=== PATIENT | female | born 1955 | race Caucasian/White ===

== ENCOUNTER 2022-03-08 23:36 | Emergency (ER) | payer BC, OTHER ==
--- OUTSIDE RECORDS SUMMARY | 2022-03-08 23:40 | XMS REPORT | Continuity of Care Document ---
:1955 Author Organization [facility] t Address [address] [place] [address] Care Team Providers Name Role Phone YAO WATKINS Primary Care Physician Unavailable REMINGTON Attending Clinician Unavailable Jb WATERMAN Attending Clinician Unavailable APOLINAR CAMPOS Attending Clinician Unavailable Apolinar Nunez Attending Clinician Doctor Unassigned, Name Attending Clinician Unavailable Екатерина VAUGHAN, A Attending Clinician Unavailable Yao Watkins MD Attending Clinician Sirisha VELASCO Attending Clinician Unavailable Darren_Kit Attending Clinician Unavailable Darren_P Admitting Clinician Unavailable Payers Payer Name Policy Type Policy Number Effective Date Expiration Date Sirisha womack MANISH/[facility] [id number] 2022 MEDICARE GOLD PPO 00:00:00 CSNP Problems Condition Condition Condition Status Onset Resolution Last Treating Co mments Source Name Details Category Date Date Treatment Clinician Date Obesity Obesity Disease Active 2015-09 Univers (BMI (BMI 1-14 ity of 30-39.9) 30-39.9) 00:00: [address] Branch Hypothyroi Hypothyroi Disease Active U nivers d d 2-04 ity of 00:00: [place] 00 Medical Branch Depression Depression Disease Active U nivers 2-04 ity of 00:00: [place] 00 Medical Branch Essential Essential Disease Active Uni vers hypertensi hypertensi 8-13 [place] y of on, benign [place] Type 2 Type 2 Disease Active Overview: Univer s diabetes diabetes 8-13 Formattin ity of mellitus mellitus 00:00: g of this [place] as without without 00 note Medical complicati complicati might be Branch ons ons different from the original. 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 Allergies, Adverse Reactions, Alerts Allergy Allergy Status Severity Reaction(s) Onset Inactive Treating Comm ents Source Name Type Date Date Clinician Robertodrmallika Propensi Active Unknown - 2014-09 Uni vers ate ty to See comments 09-28 ity of Sodium adverse 00:00: [place] reaction 00 Medical s Branch Tetracyc Propensi Active Unknown - 2014-09 Uni vers line ty to See comments 09-28 ity of adverse 00:00: [place] reaction 00 Medical s Branch RISEDRON DRUG Active Unknown-Cmnt 2014-09 Un samir ATE INGREDI 09-28 ity of SODIUM 00:00: [place] 00 Medical Branch TETRACYC DRUG Active Unknown-Cmnt 2014-09 Un samir LINE INGREDI 09-28 ity of 00:00: [place] 00 Medical Branch Codeine Propensi Active Swelling Unive rs ty to 06-05 ity of adverse 00:00: [place] reaction 00 Medical s Branch Sulfa Propensi Active Swelling Univer s (Sulfona ty to 06-05 ity of mide adverse 00:00: [place] Antibiot reaction 00 Medica l ics) s Branch CODEINE DRUG Active SOB Univers INGREDI 06-05 ity of 00:00: [place] 00 Medical Branch SULFA Drug Active ITCHING Univers (SULFONA Class 06-05 ity of MIDE 00:00: [place] ANTIBIOT 00 Medical ICS) Branch Sulfa Propensi Active Swelling Univer s (Sulfona ty to 06-05 ity of mide adverse 00:00: [place] Antibiot reaction 00 Medica l ics) s Branch Social History Social Habit Start Date Stop Date Quantity Comments Source Exposure to 2022-01-16 2022-01-26 Not sure [facility] SARS-CoV-2 (event) 00:00:00 17:07:00 Medica l Branch Alcohol intake 2021-10-10 2021-10-10 0 /d [facility] 00:00:00 00:00:00 [facility] Branch Sex Ass[birth year] At [birth year] Universit y of [place] 00:00:00 00:00:00 Medical Branch Smoking Status Start Date Stop Date Source Never smoker [facility] Branch Medications Ordered Filled Start Stop Current Ordering Indication Dosage Frequency Signature Comments Components Source Medication Medication Date Date Medication? Clinician (SIG) Name Name benzonatate No 100mg 100 mg, U nivers (TESSALON 01-27 Oral, ity of PERLES) 00:45: 23:50 ONCE, 1 [place] capsule 100 00 :00 dose, On Medi nia mg 01/26/22 Branch at 1945, CLARIBEL ipratropium No 3mL 3 mL, Univ ers -albuteroL 01-27 Inhalation it y of (DUONEB) 00:45: 23:40 , ONCE, 1 [place] 0.5 mg-3 00 :00 dose, On Medical mg(2.5 mg Wed01/26/22 Bran ch base)/3 mL at 194, nebulizer Routine solution 3 mL albuterol Yes [id number] 2.5mg Inhale 3 Univers 2.5 mg /3 5-02 mL every 4 ity of mL (0.083 00:00: (four) [place] %) 00 hours as Medical nebulizer needed for Bran ch solution Wheezing or Shortness of Breath. benzonatate Yes [id number] 200mg Take 1 Univers 200 mg 5-02 capsule by ity of capsule 00:00: mouth 3 [place] 00 (three) Medical times Branch daily as needed for Cough for up to 20 doses. mometasone Yes [id number] 2{spray Use 2 Univers (NASONEX) 5-02 } Sprays in ity o f 50 00:00: each [place] mcg/actuati 00 nostril Medic al on nasal daily. Branch spray pen needle, Yes To be used Univers diabetic 32 2-04 with the ity of gauge x 00:00: Victoza [place] 1/5" Ndle 00 Pen Medical Branch pen needle, 2021-0 Yes To be used Univers diabetic 32 2-04 with the ity of gauge x 00:00: Victoza [place] 1/5" Ndle 00 Pen Medical Branch pen needle, 2021-0 Yes To be used Univers diabetic 32 2-04 with the ity of gauge x 00:00: Victoza [place] 1/5" Ndle 00 Pen Medical Branch lisinopriL 2020-09 Yes [id number] 10mg Take 1 Un samir 10 mg 2-13 tablet by ity of tablet 00:00: mouth [place] 00 daily. Medical Branch liraglutide 2020-09 Yes [id number] 1.2mg inject 1.2 Univers (VICTOZA 2-13 mg under ity of 2-KRISTI) 0.6 00:00: the skin [place] mg/0.1 mL 00 daily. Medical (18 mg/3 Branch mL) injection lisinopriL 2020-09 Yes [id number] 10mg Take 1 Un samir 10 mg 2-13 tablet by ity of tablet 00:00: mouth [place] 00 daily. Medical Branch liraglutide 2020-09 Yes [id number] 1.2mg inject 1.2 Univers (VICTOZA 2-13 mg under ity of 2-KRISTI) 0.6 00:00: the skin [place] mg/0.1 mL 00 daily. Medical (18 mg/3 Branch mL) injection lisinopriL 2020-09 Yes [id number] 10mg Take 1 Un samir 10 mg 2-13 tablet by ity of tablet 00:00: mouth [place] 00 daily. Medical Branch liraglutide 2020-09 Yes [id number] 1.2mg inject 1.2 Univers (VICTOZA 2-13 mg under ity of 2-KRISTI) 0.6 00:00: the skin [place] mg/0.1 mL 00 daily. Medical (18 mg/3 Branch mL) injection lisinopriL 2020-09 Yes [id number] 10mg Take 1 Un samir 10 mg 2-13 tablet by ity of tablet 00:00: mouth [place] 00 daily. Medical Branch liraglutide 2020-09 Yes [id number] 1.2mg inject 1.2 Univers (VICTOZA 2-13 mg under ity of 2-KRSITI) 0.6 00:00: the skin [place] mg/0.1 mL 00 daily. Medical (18 mg/3 Branch mL) injection venlafaxine 2020-0 Yes 150mg Take 150 U nivers XR 150 mg 8-30 mg by ity of 24 hr 15:14: mouth [place] capsule 02 daily with Medica l breakfast. Branch alendronate 2020-0 Yes 70mg Take 70 mg Univers 70 mg 8-30 by mouth ity of tablet 15:14: weekly. Medical Branch gabapentin 2020-0 Yes 300mg Take 300 Un samir 300 mg 8-30 mg by ity of capsule 15:14: mouth [place] 02 daily. Medical Branch cetirizine 0 Yes 10mg Take 10 mg U nivers (ZYRTEC) 10 8-30 by mouth ity of mg tablet 15:14: daily. Medical Branch venlafaxine 0 Yes 150mg Take 150 U nivers XR 150 mg 8-30 mg by ity of 24 hr 15:14: mouth [place] capsule 02 daily with Medica l breakfast. Branch alendronate 0 Yes 70mg Take 70 mg Univers 70 mg 8-30 by mouth ity of tablet 15:14: weekly. [place] Medical Branch gabapentin 2020-0 Yes 300mg Take 300 Un samir 300 mg 8-30 mg by ity of capsule 15:14: mouth [place] 02 daily. Medical Branch cetirizine 0 Yes 10mg Take 10 mg U nivers (ZYRTEC) 10 8-30 by mouth ity of mg tablet 15:14: daily. Medical Branch venlafaxine 0 Yes 150mg Take 150 U nivers XR 150 mg 8-30 mg by ity of 24 hr 15:14: mouth [place] capsule 02 daily with Medica l breakfast. Branch alendronate 0 Yes 70mg Take 70 mg Univers 70 mg 8-30 by mouth ity of tablet 15:14: weekly. [place] [address] Medical Branch gabapentin 2020-0 Yes 300mg Take 300 Un samir 300 mg 8-30 mg by ity of capsule 15:14: mouth [place] 02 daily. Medical Branch cetirizine 2020-0 Yes 10mg Take 10 mg U nivers (ZYRTEC) 10 8-30 by mouth ity of mg tablet 15:14: daily. [place] [address] Medical [place] venlafaxine Yes 150mg Take 150 U nivers XR 150 mg 8-30 mg by ity of 24 hr 15:14: mouth [place] capsule 02 daily with Medica l breakfast. Branch alendronate Yes 70mg Take 70 mg Univers 70 mg 8-30 by mouth ity of tablet 15:14: weekly. [place] [address] Medical [place] gabapentin Yes 300mg Take 300 Un samir 300 mg 8-30 mg by ity of capsule 15:14: mouth [place] 02 daily. Medical Branch cetirizine Yes 10mg Take 10 mg U nivers (ZYRTEC) 10 8-30 by mouth ity of mg tablet 15:14: daily. [address] glipiZIDE 5 Yes 5mg Take 5 mg U nivers mg tablet 8-30 by mouth ity of 15:12: daily. [address] glipiZIDE 5 Yes 5mg Take 5 mg U nivers mg tablet 8-30 by mouth ity of 15:12: daily. [address] glipiZIDE 5 Yes 5mg Take 5 mg U nivers mg tablet 8-30 by mouth ity of 15:12: daily. [address] glipiZIDE 5 Yes 5mg Take 5 mg U nivers mg tablet 8-30 by mouth ity of 15:12: daily. [address] butalbital- Yes [id number] 1{tbl} Take 1 Univers acetaminoph 8-25 tablet by ity of en-caff 00:00: mouth [place] 50-325-40 00 every 6 Medical mg tablet (six) Branch hours as needed for Pain (scale 7-10). butalbital- Yes [id number] 1{tbl} Take 1 Univers acetaminoph 8-25 tablet by ity of en-caff 00:00: mouth [place] 50-325-40 00 every 6 Medical mg tablet (six) Branch hours as needed for Pain (scale 7-10). butalbital- Yes [id number] 1{tbl} Take 1 Univers acetaminoph 8-25 tablet by ity of en-caff 00:00: mouth [place] 50-325-40 00 every 6 Medical mg tablet (six) Branch hours as needed for Pain (scale 7-10). butalbital- Yes [id number] 1{tbl} Take 1 Univers acetaminoph 8-25 tablet by ity of en-caff 00:00: mouth [place] 50-325-40 00 every 6 Medical mg tablet (six) Branch hours as needed for Pain (scale 7-10). metformin Yes [id number] 500mg Take 1 Tab Univers ER 2-04 by mouth 2 ity of (GLUCOPHAGE 00:00: (two) [place] -XR) 500 mg 00 times Medical 24 hr daily. Branch tablet metformin Yes [id number] 500mg Take 1 Tab Univers ER 2-04 by mouth 2 ity of (GLUCOPHAGE 00:00: (two) [place] -XR) 500 mg 00 times Medical 24 hr daily. Branch tablet metformin Yes [id number] 500mg Take 1 Tab Univers ER 2-04 by mouth 2 ity of (GLUCOPHAGE 00:00: (two) [place] -XR) 500 mg 00 times Medical 24 hr daily. Branch tablet metformin Yes [id number] 500mg Take 1 Tab Univers ER 2-04 by mouth 2 ity of (GLUCOPHAGE 00:00: (two) [place] -XR) 500 mg 00 times Medical 24 hr daily. Branch tablet Vital Signs Vital Name Observation Time Observation Value Comments Source Systolic blood 2022-01-27 01:07:00 110 mm[Hg] [facility] Diastolic blood 2022-01-27 01:07:00 73 mm[Hg] [facility] [place] [facility] Heart rate 2022-01-27 01:07:00 84 /min [facility] Body temperature 2022-01-27 01:07:00 37.06 Terri [facility] Respiratory rate 2022-01-27 01:07:00 17 /min [facility] Oxygen saturation in 2022-01-27 01:07:00 100 /min [facility] Arterial blood by [facility] Pulse oximetry Branch Body height 2022-01-26 22:08:00 162.6 cm [facility] Body weight 2022-01-26 22:08:00 85.276 kg Universi ty [facility] BMI 2022-01-26 22:08:00 32.27 kg/m2 Universi ty [facility] Procedures Procedure Date / Time Performed Performing Clinician [facility] e CONSENT/REFUSAL FOR 2022-01-26 21:48:12 Doctor Unassigned, No Un [facility] DIAGNOSIS AND Name [facility] TREATMENT Encounters Start End Encounter Admission Attending Care Care Encounter Source Date/Time Date/Time Type Type Clinicians Facility Department ID 2022-04-14 2022-04-14 Outpatient R REMINGTON [facility] [id number] Univers 08:30:00 08:30:00 CHRISTIANE [id number] ity [facility] 2022-03-19 2022-03-19 Outpatient [facility] [id number] Univers 08:00:00 08:00:00 ANNALISE [id number] ity of [facility] 2022-03-06 2022-03-06 Outpatient [facility] [id number] Univers 11:15:00 11:15:00 ANNALISE [id number] ity of [facility] 2022-01-26 2022-01-26 Emergency X BETH, K [facility] ERT [id number] Univers 17:10:00 20:09:00 ity of [facility] 2022-01-26 2022-01-26 Emergency Sara Campos [facility] [id number] Univers 17:10:00 20:09:00 Apolinar TURNER [id number] i ty of [place] [id number] [facility] [id number] [facility] 084 Branch 2022-01-26 2022-01-26 Orders Doctor CARMONA [id number] Univers 00:00:00 00:00:00 Only Unassigned, SAMUEL [id number] ity of [place] [facility] [id number] [place] [address] [id number] [facility] 009 Branch 2022-01-07 2022-01-07 Telephone KRISTINE Willams [id number] Univers 00:00:00 00:00:00 Enma BAKER [id number] ity of [facility] [id number] [place] [id number] [place] [id number] [place] 2021-10-31 2021-10-31 [facility] [id number] Univers 00:00:00 00:00:00 [facility] [id number] it y of [facility] [id number] [place] as YOHAN?BLEA [id number] [address] MEDICAL OFFICE BUILDING 2021-10-10 2021-10-10 Outpatient Salvatore VELASCO [facility] [id number] Univers 08:00:00 08:28:04 DEANNA ne [facility] 2021-09-26 2021-09-26 Outpatient Salvatore WATERMAN [facility] [id number] Univers 11:00:00 11:19:13 ANNALISE [facility] 2021-08-06 2021-08-06 Outpatient Salvatore WATERMAN [facility] [id number] Univers [facility]:05[facility]59[facility] 2019-12-18 Outpatient Raju_P [facility] G [id number] [place] 09:46:00 09:46:00 0323 Medical Group Results This patient has no known results.
--- NOTE | 2022-03-09 00:29 | ER ---
Nurse's Notes [facility] Name: Amber Petersen Age: 66 yrs Sex: Female : 1955 Arrival Date: 03/08/2022 Time: 23:38 Bed Waiting Private MD: Diagnosis: Presentation: 03/09 00:06 Chief complaint: Patient states: My blood sugar was over 400, I was told to come in to jb4 get checked out. Coronavirus screen: At this time, the client does not indicate any symptoms associated with coronavirus-19. Ebola Screen: No symptoms or risks identified at this time. Initial Sepsis Screen: Does the patient meet any 2 criteria? No. Patient's initial sepsis screen is negative. Does the patient have a suspected source of infection? No. Patient's initial sepsis screen is negative. Risk Assessment: Do you want to hurt yourself or someone else? Patient reports no desire to harm self or others. Onset of symptoms was March 09, 2022. Transition of care: patient was not received from another setting of care. 00:06 Method Of Arrival: Ambulatory jb4 00:06 Acuity: LIVAN 3 jb4 Triage Assessment: 00:09 General: Appears in no apparent distress. comfortable, Behavior is calm, cooperative, jb4 appropriate for age. Pain: Denies pain. Neuro: Hernandez Agitation-Sedation Scale (RASS): 0 - Alert and Calm Level of Consciousness is awake, alert, obeys commands, Oriented to person, place, time, situation. Cardiovascular: Patient's skin is warm and dry. Respiratory: Airway is patent Respiratory effort is even, unlabored, Respiratory pattern is regular, symmetrical. GI: Reports nausea. Derm: Skin is intact, Skin is pink, warm \T\ dry. Musculoskeletal: Circulation, motion, and sensation intact. Range of motion: intact in all extremities. Historical: - Allergies: 00:07 Sulfa (Sulfonamide Antibiotics); jb4 00:07 Codeine; jb4 - Home Meds: 00:09 Metformin Oral [Active]; Victoza [Active]; Lisinopril Oral [Active]; gabapentin oral jb4 [Active]; cetirizine oral [Active]; montelukast oral [Active]; - PMHx: 00:07 DM; HTN; jb4 00:09 Asthma; jb4 - PSHx: 00:07 SHAYNE knee surgeries; hysterectomy; tubal; Cholecystectomy; jb4 - Immunization history:: Adult Immunizations up to date. - Social history:: Smoking status: Patient denies any tobacco usage or history of. Screenin:26 Abuse screen: Denies threats or abuse. Nutritional screening: No deficits noted. jb4 Tuberculosis screening: No symptoms or risk factors identified. Fall Risk None identified. Assessment: 00:26 Reassessment: Checked pt's blood sugar, informed pt it was now 241. PT decided not to jb4 stay and verbalized intent to follow up with her PCP in the morning. Vital Signs: 00:06 Pulse 76; Resp 16; Temp 98.2; Pulse Ox 97% on R/A; Weight 90.26 kg (R); Height 5 ft. 4 jb4 in. (162.56 cm) (R); Pain 0/10; 00:06 Body Mass Index 34.16 (90.26 kg, 162.56 cm) jb4 ED Course: 03/08 23:38 Patient arrived in ED. bp1 03/09 00:07 Triage completed. jb4 00:09 Arm band placed on right wrist. jb4 00:26 Patient has correct armband on for positive identification. jb4 00:26 No provider procedures requiring assistance completed. Patient did not have IV access jb4 during this emergency room visit. Administered Medications: No medications were administered Medication: 00:26 VIS not applicable for this client. jb4 Point of Care Testing: Blood Glucose: 00:16 Blood Glucose: 241 mg/dL; jb4 Ranges: Outcome: 00:26 Eloped from waiting room, before seeing physician jb4 00:26 Condition: stable 00:28 Patient left the ED. jb4 Signatures: Jonathon Fernandez, RN RN jb4 Kasandra Queen bp1 Corrections: (The following items were deleted from the chart) 00:10 00:07 Allergies: No Known Allergies; jb4 jb4
[2022-03-09 00:40] VITALS: TEMP 98.2; O2SAT 97
== END 2022-03-09 00:28 | disposition left against medical advice (07) ==
LOC: ER 23:36
DX: E11.65 Type 2 diabetes mellitus with hyperglycemia (principal); I10 Essential (primary) hypertension; J45.909 Unspecified asthma, uncomplicated; Z53.21 Procedure and treatment not carried out due to patient leaving prior to being seen by health care provider
CPT/HCPCS: 82947; 99281

== ENCOUNTER 2024-03-20 21:43 | Observation (INO) | payer MEDICARE ==
[2024-03-20] MEDS ORDERED: ONDANSETRON 4 MG/2 ML VIAL ONE (22:21)
[2024-03-20] MEDS ORDERED: KETOROLAC 30 MG/ML INJ ONE (22:21)
[2024-03-20] MEDS ORDERED: MORPHINE 4 MG/ML SYR ONE (22:22)
[2024-03-20] MEDS ORDERED: NA CHLORIDE 0.9% 1,000 ML ONE (22:23)
[2024-03-20 22:59] LABS: PT Prothrombin Time 10.9 SECONDS (9.4-12.5); PTT, Activated Partial Thromb 60.7 SECONDS (24.3-36.9); Protime INR 0.99
[2024-03-20 23:01] LABS: Absolute Basophils 0.1 K/uL (0-0.5); Absolute Eosinophils 0.1 K/uL (0-0.5); Absolute Lymphocytes (CBC) 3.6 K/uL (0.7-4.9); Absolute Monocytes 0.8 K/uL (0.1-1.3); Basophils % 0.6 % (0-1.3); Eosinophils % 1.3 % (0-4.4); Hemoglobin 14.8 g/dL (12.0-15.0); Lymphocytes % 37.6 % (15.3-44.8); MCH 30.2 pg (27.0-35.0); MCHC 33.7 g/dL (32.0-36.0); MCV 89.7 fL (80-100); MPV 8.9 fL (7.6-11.3); Monocytes % 8.1 % (3.3-12.3); Neutrophils % 52.4 % (41.7-73.7); Platelets 244 thou/uL (152-406); RBC Red Blood Cell Count 4.91 M/uL (3.86-4.86); Red Cell Distribution Width 13.4 % (12.1-15.2)
[2024-03-20 23:08] LABS: Anion Gap 9.5 mEq/L (5.0-15.0); Potassium 3.5 mEq/L (3.5-5.1)
[2024-03-20 23:24] LABS: Troponin High Sensitivity 149.6 pg/mL (<58.9)
--- NOTE | 2024-03-20 23:29 | ER ---
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 Coronavirus screen: At this time, the client does not indicate any symptoms associated with coronavirus-19. Ebola Screen: Patient negative for fever greater than or equal to 101.5 degrees Fahrenheit, and additional compatible Ebola Virus Disease symptoms Patient denies exposure to infectious person. Patient denies travel to an Ebola-affected area in the 21 days before illness onset. No symptoms or risks identified at this time. Initial Sepsis Screen: Does the patient meet any 2 criteria? No. Patient's initial sepsis screen is negative. Does the patient have a suspected source of infection? No. Patient's initial sepsis screen is negative. Risk Assessment: Do you want to hurt yourself or someone else? Patient reports no desire to harm self or others. Onset of symptoms was March 20, 2024 at 21:00. 22:00 Method Of Arrival: Ambulatory bm8 22:00 Acuity: LIVAN 2 bm8 Triage Assessment: 22:01 General: Appears in no apparent distress. uncomfortable, Behavior is calm, cooperative, bm8 appropriate for age. Pain: Complains of pain in chest Pain radiates to back Pain currently is 10 out of 10 on a pain scale. Cardiovascular: Reports chest pain, shortness of breath, Capillary refill < 3 seconds Patient's skin is warm and dry. Respiratory: Airway is patent Trachea midline Respiratory effort is even, unlabored, Respiratory pattern is regular, symmetrical. Historical: - Allergies: 22:01 Codeine; bm8 22:01 Sulfa (Sulfonamide Antibiotics); bm8 - Home Meds: 22:01 gabapentin Oral [Active]; montelukast Oral [Active]; Ozempic subcutaneous [Active]; bm8 Januvia oral [Active]; losartan oral [Active]; levothyroxine oral [Active]; rosuvastatin oral [Active]; Albuterol Inhl [Active]; venlafaxine oral [Active]; amlodipine oral [Active]; Jardiance oral [Active]; omeprazole Oral [Active]; - PMHx: 22: Asthma; DM; HTN; Depressive disorder; bm8 - PSHx: 22:01 SHAYNE knee surgeries; Cholecystectomy; hysterectomy; tubal; bm8 - Immunization history:: Adult Immunizations up to date. - Infectious Disease History:: Denies. - Social history:: Smoking status: Patient denies any tobacco usage or history of. Screenin:43 [facility] ED Fall Risk Assessment (Adult) History of falling in the last 3 months, me1 including since admission No falls in past 3 months (0 pts) Confusion or Disorientation No (0 pts) Intoxicated or Sedated No (0 pts) Impaired Gait No (0 pts) Mobility Assist Device Used No (0 pt) Altered Elimination No (0 pt) Score/Fall Risk Level 0 - 2 = Low Risk Maintained a safe environment, Provided non-skid footwear, Hourly rounding (assess needs \T\ fall precautionary measures) done. Abuse screen: Denies threats or abuse. Nutritional screening: No deficits noted. Tuberculosis screening: No symptoms or risk factors identified. 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 Pain: Complains of pain in chest Pain radiates to back Pain currently is 10 out of 10 on a pain scale. Quality of pain is described as sharp, shooting, Pain began suddenly, Is continuous. Neuro: Level of Consciousness is awake, alert, obeys commands, Oriented to person, place, time, situation, Appropriate for age. Cardiovascular: Reports chest pain, nausea, shortness of breath, Patient's skin is warm and dry. Respiratory: Airway is patent Respiratory effort is even, unlabored, Respiratory pattern is regular, symmetrical. GI: No signs and/or symptoms were reported involving the gastrointestinal system. GI: Reports nausea. : No signs and/or symptoms were reported regarding the genitourinary system. EENT: No signs and/or symptoms were reported regarding the EENT system. Derm: Skin is intact, is healthy with good turgor, Skin is pink, warm \T\ dry. Musculoskeletal: No signs and/or symptoms reported regarding the musculoskeletal system. Vital Signs: 22:00 BP 178 / 71; Pulse 93; Resp 17; Temp 98.6; Pulse Ox 95% on R/A; Weight 83.01 kg; Height bm8 5 ft. 4 in. ; Pain 10/10; 22:30 BP 155 / 67; Pulse 83; Resp 18; Pulse Ox 94% on R/A; me1 23:00 BP 122 / 56; Pulse 86; Resp 18; Pulse Ox 93% on R/A; me1 22:00 Body Mass Index 31.41 (83.01 kg, 162.56 cm) bm8 22:00 Pain Scale: Adult bm8 ED Course: 21:54 Patient arrived in ED. rv1 21:57 Messi Herrmann MD is Attending Physician. ec2 22:00 No provider procedures requiring assistance completed. O2 via room air. me1 22:00 Patient has correct armband on for positive identification. Bed in low position. Call wi1 light in reach. Side rails up X2. Provided Education on: POC. Verbalized understanding. . Client placed on continuous cardiac and pulse oximetry monitoring. NIBP monitoring applied. security monitor on. Pulse ox on. NIBP on. 22:01 Triage completed. bm8 22:01 Arm band placed on right wrist. bm8 22:06 Arin Rosen, RN is Primary Nurse. me1 22:06 EKG done, by ED staff, reviewed by Messi Herrmann MD. me1 22:35 Initial lab(s) drawn, by wi, sent to lab. Inserted saline lock: 22 gauge in right me1 antecubital area, using aseptic technique. 22:36 Ptt, Activated Sent. me1 22:36 Basic Metabolic Panel Sent. me1 22:36 CBC with Diff Sent. me1 22:36 NT PRO-BNP Sent. me1 22:36 PT-INR Sent. me1 22:36 Troponin HS Sent. me1 22:50 XRAY Chest (1 view) In Process Unspecified. EDMS 23:26 Notified ED physician of a critical lab result(s). troponin 149.6. me1 23:28 Flakito Burrows MD is Hospitalizing Provider. ec2 03/21 00:00 Patient admitted, IV remains in place. vc1 00:58 Troponin High Sensitivity Sent. rc3 10:50 Notified primary nurse of troponin 1895.3 CLEMENT Knowles Notified the Hospitalist of [place] ll1 [place] informed troponin 1895.3. 10:[address] Palafox troponin 1895.3. Patient is on therapeutic lovenox and is NPO. ll1 Administered Medications: 03/20 22:35 Drug: NS 0.9% IV 1000 ml IV at 1 bolus Per protocol; 1000 mL bolus Route: IV; Rate: 1 me1 bolus; Site: right antecubital; 23:46 Follow up: Response: No adverse reaction; IV Status: Completed infusion; IV Intake: me1 1000ml 22:36 Drug: morphine IVP or IV 2 mg IVP once over 4 mins Route: IVP; Infused Over: 4 mins; me1 Site: right antecubital; 23:12 Follow up: Response: No adverse reaction; Pain is decreased me1 22:36 Drug: Ondansetron IVP 4 mg IVP once; over 2 minutes Route: IVP; Site: right antecubital;me1 23:11 Follow up: Response: No adverse reaction; Nausea is decreased me1 22:36 Drug: Ketorolac IVP 15 mg IVP once Route: IVP; Site: right antecubital; me1 23:11 Follow up: Response: No adverse reaction; Pain is decreased me1 23:46 Drug: Aspirin PO Chewable Tablet 324 mg PO once; 81 mg tablets x 4 Route: PO; me1 23:47 Follow up: Response: No adverse reaction me1 23:46 Drug: Enoxaparin Sub-Q 1 mg/kg Sub-Q once Route: Sub-Q; Site: abdomen; me1 23:47 Follow up: Response: No adverse reaction me1 Medication: 22:43 VIS not applicable for this client. me1 Intake: 23:46 IV: 1000ml; Total: 1000ml. me1 Outcome: 23:28 Decision to Hospitalize by Provider. ec2 03/21 00:00 Admitted to ER Hold. Please see [facility] for further documentation. vc1 Condition: good Instructed on the need for admit, 11:31 Patient left the ED. 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
--- NOTE | 2024-03-20 23:29 | EDPHYS ---
Physician Documentation [facility] Name: Amber Petersen Age: 68 yrs Sex: Female : 1955 Arrival Date: 03/20/2024 Time: 21:43 Bed 18 Private MD: ED Physician Messi Herrmann HPI: 03/20 22:16 This 68 yrs old Female presents to ER via Ambulatory with complaints of Chest ec2 Pain. 22:16 Patient arrives today for evaluation of chest pain. Patient reports that she is having ec2 chest pain in the left chest. Onset for several hours. No specific alleviating or exacerbating factors. History of hypertension, hyperlipidemia, diabetes. Patient is concerned she is dehydrated as she has not had adequate fluid intake today.. Historical: - Allergies: 22:01 Codeine; bm8 22:01 Sulfa (Sulfonamide Antibiotics); bm8 - Home Meds: 22:01 gabapentin Oral [Active]; montelukast Oral [Active]; Ozempic subcutaneous [Active]; bm8 Januvia oral [Active]; losartan oral [Active]; levothyroxine oral [Active]; rosuvastatin oral [Active]; Albuterol Inhl [Active]; venlafaxine oral [Active]; amlodipine oral [Active]; Jardiance oral [Active]; omeprazole Oral [Active]; - PMHx: 22:01 Asthma; DM; HTN; Depressive disorder; bm8 - PSHx: 22:01 SHAYNE knee surgeries; Cholecystectomy; hysterectomy; tubal; bm8 - Immunization history:: Adult Immunizations up to date. - Infectious Disease History:: Denies. - Social history:: Smoking status: Patient denies any tobacco usage or history of. ROS: 22:16 Constitutional: as per hpi ec2 Exam: 22:16 Constitutional: GEN: NAD Head: atraumatic Eyes: EOMI Ears: External ears are ec2 normal. CV: regular rate LUNGS: no respiratory distress ABD: non-distended SKIN: no evidence of rashes MSK: no evidence of trauma NEURO: moves all extremities equally Vital Signs: 22:00 BP 178 / 71; Pulse 93; Resp 17; Temp 98.6; Pulse Ox 95% on R/A; Weight 83.01 kg; Height bm8 5 ft. 4 in. ; Pain 10/10; 22:30 BP 155 / 67; Pulse 83; Resp 18; Pulse Ox 94% on R/A; me1 23:00 BP 122 / 56; Pulse 86; Resp 18; Pulse Ox 93% on R/A; me1 22:00 Body Mass Index 31.41 (83.01 kg, 162.56 cm) bm8 22:00 Pain Scale: Adult bm8 MDM: 22:02 Patient medically screened. ec2 22:05 Data reviewed: vital signs. ED course: EKG independently reviewed and interpreted by ec2 me, shows normal sinus rhythm, rate 95, no acute ST segment elevations, intervals are nonconcerning. . 22:16 ED course: Patient is a well-appearing nontoxic individual is otherwise in no acute ec2 distress with a reassuring examination and reassuring hemodynamics. EKG obtained as above, will obtain lab work, chest x-ray and treat the patient's pain. Differential diagnosis includes ACS, doubt PE or dissection. Additionally considered electrolyte disturbance, anemia, renal dysfunction.. 23:26 ED course: Metabolic profile shows appropriate electrolytes, troponin is elevated at ec2 150, BNP within normal ranges, CBC is reassuring. Will give the patient full dose of aspirin, load with Lovenox as well. . 23:27 ED course: Chest x-ray independently reviewed and interpreted by me, shows no acute ec2 intrathoracic process. Will admit the patient for NSTEMI. Discussed case with hospitalist, pending admission.. 23:27 ED course: MDM: Differential diagnosis as documented above in ED course; All lab tests ec2 ordered and reviewed as documented above; Independent interpretation of tests: EKG as above; imaging as above; Parenteral controlled substances: Yes; Discuss inpatient hospitalization: Yes; I discussed the case with: Hospitalist . 03/20 22:02 Order name: Basic Metabolic Panel; Complete Time: 23: ec2 03/20 22:02 Order name: CBC with Diff; Complete Time: 23:14 ec2 03/20 22:02 Order name: NT PRO-BNP; Complete Time: 23:26 ec2 03/20 22:02 Order name: PT-INR; Complete Time: 23:14 ec2 03/20 22:02 Order name: Troponin HS; Complete Time: 23:26 ec2 03/20 22:02 Order name: Ptt, Activated; Complete Time: 23:14 ec2 03/21 00:42 Order name: Urinalysis w/ reflexes EDMS 03/21 00:42 Order name: CBC with Automated Diff EDMS 03/21 00:42 Order name: CBC with Automated Diff EDMS 03/21 00:42 Order name: Comprehensive Metabolic Panel EDMS 03/21 00:42 Order name: Comprehensive Metabolic Panel EDMS 03/21 00:42 Order name: Troponin High Sensitivity EDMS 03/21 00:42 Order name: Troponin High Sensitivity EDMS 03/21 00:42 Order name: Troponin High Sensitivity EDMS 03/21 00:42 Order name: Troponin High Sensitivity EDMS 03/21 04:54 Order name: Glucose, Ancillary Testing EDMS 03/20 22:02 Order name: XRAY Chest (1 view) ec2 03/21 00:42 Order name: CONS Physician Consult EDMS 03/20 22:02 Order name: Cardiac monitoring; Complete Time: 22:36 ec2 03/20 22:02 Order name: EKG - Nurse/Tech; Complete Time: 22:06 ec2 03/20 22:02 Order name: IV Saline Lock; Complete Time: 22:36 ec2 03/20 22:02 Order name: Labs collected and sent; Complete Time: 22:36 ec2 03/20 22:02 Order name: O2 Per Protocol; Complete Time: 22:36 ec2 03/20 22:02 Order name: O2 Sat Monitoring; Complete Time: 22:36 ec2 Administered Medications: 22:35 Drug: NS 0.9% IV 1000 ml IV at 1 bolus Per protocol; 1000 mL bolus Route: IV; Rate: 1 me1 bolus; Site: right antecubital; 23:46 Follow up: Response: No adverse reaction; IV Status: Completed infusion; IV Intake: me1 1000ml 22:36 Drug: morphine IVP or IV 2 mg IVP once over 4 mins Route: IVP; Infused Over: 4 mins; me1 Site: right antecubital; 23:12 Follow up: Response: No adverse reaction; Pain is decreased me1 22:36 Drug: Ondansetron IVP 4 mg IVP once; over 2 minutes Route: IVP; Site: right antecubital;me1 23:11 Follow up: Response: No adverse reaction; Nausea is decreased me1 22:36 Drug: Ketorolac IVP 15 mg IVP once Route: IVP; Site: right antecubital; me1 23:11 Follow up: Response: No adverse reaction; Pain is decreased me1 23:46 Drug: Aspirin PO Chewable Tablet 324 mg PO once; 81 mg tablets x 4 Route: PO; me1 23:47 Follow up: Response: No adverse reaction me1 23:46 Drug: Enoxaparin Sub-Q 1 mg/kg Sub-Q once Route: Sub-Q; Site: abdomen; me1 23:47 Follow up: Response: No adverse reaction me1 Disposition: 23:28 Critical Care:. ec2 Disposition Summary: 03/20/24 23:28 Hospitalization Ordered Notes: Hospitalization Status: Inpatient Admission ec2 Provider: Flakito Burrows ec2 Condition: Stable ec2 Problem: new ec2 Symptoms: are unchanged ec2 Bed/Room Type: Standard ec2 Location: [facility] [place] ER HOLD(03/20/24 23:49) rc3 Room Assignment: ERHOLD-(03/20/24 23:49) 3 Diagnosis - NSTEMI ec2 Discharge Instructions: - Discharge Summary Sheet ec2 - Nonspecific Chest Pain, Adult ec2 Forms: - Medication Reconciliation Form ec2 - SBAR form ec2 - Leadership Thank You Letter ec2 Critical care time excluding procedures: 23:28 Critical care time: Bedside Care: 30 minutes, Consultation: 5 minutes. Total time: 35 ec2 minutes Signatures: Dispatcher [employer] Arin Song, RN RN me1 Messi Herrmann MD MD ec2 Beverly Trujillo rc3 Rod Fishman, RN RN bm8 Corrections: (The following items were deleted from the chart) 23:49 23:28 Telemetry/MedSurg (Inpatient) ec2 rc3 23:49 23:28 ec2 rc3
[2024-03-20] MEDS ORDERED: ENOXAPARIN 100 MG/ML SYR SQ ONE (23:41)
[2024-03-20] MEDS ORDERED: ASPIRIN 81 MG CHEWABLE TABLET ONE (23:42)
--- NOTE | 2024-03-21 00:36 | P.HP ---
Certification for Inpatient Patient admitted to: Observation With expected LOS: <2 Midnights Practitioner: I am a practitioner with admitting privileges, knowledge of patient current condition, hospital course, and medical plan of care. Services: Services provided to patient in accordance with Admission requirements found in Title 42 Section 412.3 of the Code of Federal Regulations Patient History Date of Service: 03/21/24 Reason for admission: Chest Pain History of Present Illness: 68 yrs old Female with past medical history of asthma, diabetes, hypertension, depression, came to ER with chest pain . Located retrosternally with no radiation started this afternoon associated with some shortness of breath. Denies any fever or chills. No nausea vomiting or diarrhea. Denies any diaphoresis. Pain is 3 out of 10 in severity at the time of interview. Better with morphine. Denies any previous history of CAD. Had an angiogram done few years ago which was normal as per the patient. Patient was assessed in the ER and was found to have elevated troponin and was admitted for further management Allergies codeine Allergy (Severe, Verified 05/16/15 17:24) Shortness of breath tetracycline [Tetracycline] Adverse Reaction (Intermediate, Verified 04/07/12 12:12) RASH/SOB Home medications list reviewed: Yes Home Medications: Celecoxib [Celebrex] 200 mg PO DAILY 05/16/15 Levothyroxine [Synthroid*] 0.075 mg PO 0600 05/16/15 Liraglutide [Victoza 2-Sung] 1.2 mg SQ DAILY 05/16/15 Metformin HCl [Glucophage] 1,000 mg PO BID 05/16/15 Pioglitazone HCl [Actos] 15 mg PO DAILY 05/16/15 lisinopriL [Prinivil*] 10 mg PO DAILY 05/16/15 Duloxetine [Cymbalta *] 60 mg PO DAILY 05/17/15 Methylprednisolone [Medrol dosepack] 4 mg PO DAILY #1 tab.ds.pk 05/18/15 - Past Medical/Surgical History Past Medical History: Reviewed- Non-Contributory -: NIDDM -: HTN Past Surgical History: Reviewed- Non-Contributory -: CHOLECYSTECTOMY -: TUBAL LIGATION -: KNEE,HEEL SURGERY -: HYSTERECTOMY - Family History Family History: Reviewed- Non-Contributory - Social History Smoking Status: Never smoker Alcohol use: Yes CD- Drugs: No Caffeine use: Yes Review of Systems 10-point ROS is otherwise unremarkable Physical Examination - Vital Signs Temperature: 98.2 F Blood Pressure: 138/72 Pulse: 78 Respirations: 18 Pulse Ox (%): 93 - Physical Exam General: Alert, In no apparent distress, Oriented x3, Obese HEENT: Atraumatic, Normocephalic Neck: Supple, 2+ carotid pulse no bruit Respiratory: Clear to auscultation bilaterally, Normal air movement Cardiovascular: No edema, Regular rate/rhythm, Normal S1 S2 Capillary refill: <2 Seconds Gastrointestinal: Soft and benign, W/out hepatosplenomegaly Musculoskeletal: No clubbing Integumentary: No rashes, No breakdown Neurological: Normal speech, Normal strength at 5/5 x4 extr, Cranial nerves 3-12 intact, Normal reflexes 2+, Normal affect Lymphatics: No axilla or inguinal lymphadenopathy - Studies Laboratory Data (last 24 hrs) 03/20/24 03/20/24 03/20/24 22:30 22:30 22:30 WBC 9.50 Hgb 14.8 Hct 44.0 Plt Count 244 PT 10.9 INR 0.99 APTT 60.7 H Sodium 138 Potassium 3.5 BUN 13 Creatinine 0.78 Glucose 310 H Assessment and Plan - Problems (Diagnosis) (1) NSTEMI (non-ST elevated myocardial infarction) Current Visit: Yes Status: Acute Plan: NSTEMI Will trend cardiac enzymes Will monitor telemetry Started on aspirin and statin EKG did not show any acute changes s suggestive of ischemia Will get an echocardiogram Cardiology consult Hypertension Antihypertensives titrated Continue home medications and titrate as needed Hyperlipidemia Continue statin Diabetes Insulin sliding scale Accu-Chek before every meal and at bedtime Anxiety Continue home medications and titrate as needed GI/DVT prophylaxis Advanced directive full code Discharge Plan: Home Plan to discharge in: 48 Hours - Advance Directives Does patient have a Living Will: No Does patient have a Durable POA for Healthcare: No - Code Status/Comfort Care Code Status: Full Code Time Spent Managing Pts Care (In Minutes): 48
[2024-03-21] MEDS ORDERED: HYDROCODONE/APAP 10/325 TAB PO PRN (03:28)
[2024-03-21] MEDS ORDERED: MORPHINE 4 MG/ML SYR ONE ×2 (03:30→08:54)
[2024-03-21] MEDS ORDERED: ONDANSETRON 4 MG/2 ML VIAL ONE (03:30)
[2024-03-21] MEDS ORDERED: ACETAMINOPHEN 325 MG TABLET ONE (03:30)
[2024-03-21] MEDS: ACETAMINOPHEN 325 MG TABLET PO PRN (03:41)
[2024-03-21] MEDS: ONDANSETRON 4 MG/2 ML VIAL IV PRN (03:41)
[2024-03-21] MEDS: MORPHINE 4 MG/ML SYR IV PRN (03:42)
[2024-03-21] MEDS: NITROGLYCERIN 0.1 MG/HR (2.5 MG) PATCH TD ONE (04:00)
[2024-03-21] MEDS ORDERED: ASPIRIN EC 81 MG TAB PO ONE (08:05)
[2024-03-21] MEDS ORDERED: ENOXAPARIN 40 MG/0.4 ML SQ ONE (08:05)
[2024-03-21] MEDS: ASPIRIN EC 81 MG TAB PO SCH (08:43)
[2024-03-21] MEDS: ENOXAPARIN 40 MG/0.4 ML SQ SCH (08:43)
[2024-03-21] MEDS ORDERED: NITROGLYCERIN 1 GM PKT TD ONE (08:53)
[2024-03-21] MEDS: NITROGLYCERIN 0.1 MG/HR (2.5 MG) PATCH TD SCH (09:00)
--- NOTE | 2024-03-21 10:17 | P.PN ---
Date of Service: 03/21/24 Subjective N.p.o. for heart cath, elevated troponin, complaint of chest pain 2 out of 10, no nausea, vomiting diaphoresis Review of Systems 10-point ROS is otherwise unremarkable Physical Examination - Vital Signs reviewed - Physical Exam General: Alert, In no apparent distress, AOX3 Neck: Supple, 2+ carotid pulse no bruit Respiratory: Clear to auscultation bilaterally, Normal air movement Cardiovascular: No edema, Regular rate/rhythm, Normal S1 S2 Capillary refill: <2 Seconds Gastrointestinal: Soft and benign, W/out hepatosplenomegaly Musculoskeletal: No clubbing Integumentary: No rashes, No breakdown Neurological: Normal speech, Normal strength at 5/5 x4 extr, Assessment and Plan - Problems (Diagnosis) NSTEMI Will trend cardiac enzymes Will monitor telemetry Started on aspirin and statin EKG did not show any acute changes s suggestive of ischemia Will get an echocardiogram Cardiology consult notified of elevated troponin Hypertension Antihypertensives titrated Continue home medications and titrate as needed Hyperlipidemia Continue statin Diabetes Insulin sliding scale Accu-Chek before every meal and at bedtime Anxiety Continue home medications and titrate as needed GI/DVT prophylaxis Advanced directive full code
[2024-03-21] MEDS: ENOXAPARIN 40 MG/0.4 ML SQ ONE (11:00)
--- NOTE | 2024-03-21 11:10 | P.CNS ---
Date of Consult: 03/21/24 Chief Complaint: Chest Pain History of Present Illness: Patient with PMH of DM, HTN, and HLD presented with chest pain pressure in nature, left side, radiating to back that started yesterday, associated with diapharesis, no other cardiac symptoms. Allergies codeine Allergy (Severe, Verified 05/16/15 17:24) Shortness of breath tetracycline [Tetracycline] Adverse Reaction (Intermediate, Verified 04/07/12 12:12) RASH/SOB Home Medications: Celecoxib [Celebrex] 200 mg PO DAILY 05/16/15 Levothyroxine [Synthroid*] 0.075 mg PO 0600 05/16/15 Liraglutide [Victoza 2-Sung] 1.2 mg SQ DAILY 05/16/15 Metformin HCl [Glucophage] 1,000 mg PO BID 05/16/15 Pioglitazone HCl [Actos] 15 mg PO DAILY 05/16/15 lisinopriL [Prinivil*] 10 mg PO DAILY 05/16/15 Duloxetine [Cymbalta *] 60 mg PO DAILY 05/17/15 Methylprednisolone [Medrol dosepack] 4 mg PO DAILY #1 tab.ds.pk 05/18/15 - Past Medical/Surgical History Diabetic: Yes -: NIDDM -: HTN -: CHOLECYSTECTOMY -: TUBAL LIGATION -: KNEE,HEEL SURGERY -: HYSTERECTOMY - Social History Alcohol use: Yes CD- Drugs: No Caffeine use: Yes Place of Residence: Home Review of Systems 10-point ROS is otherwise unremarkable Physical Examination Temp Pulse Resp BP Pulse Ox 98.2 F 78 18 138/72 93 03/21/24 05:26 03/21/24 05:26 03/21/24 05:26 03/21/24 05:26 03/21/24 05:26 General: Alert, In no apparent distress HEENT: Atraumatic, PERRLA, Mucous membr. moist/pink, EOMI, Sclerae nonicteric Neck: Supple, 2+ carotid pulse no bruit, No LAD, Without JVD or thyroid abnormality Respiratory: Clear to auscultation bilaterally, Normal air movement Cardiovascular: Regular rate/rhythm, Normal S1 S2 Gastrointestinal: Normal bowel sounds, No tenderness Musculoskeletal: No tenderness Integumentary: No rashes Neurological: Normal gait, Normal speech, Normal tone, Normal affect Lymphatics: No axilla or inguinal lymphadenopathy Laboratory Data (last 24 hrs) 03/20/24 03/20/24 03/20/24 22:30 22:30 22:30 WBC 9.50 Hgb 14.8 Hct 44.0 Plt Count 244 PT 10.9 INR 0.99 APTT 60.7 H Sodium 138 Potassium 3.5 BUN 13 Creatinine 0.78 Glucose 310 H - Problems (1) HTN (hypertension) Current Visit: Yes Status: Acute Plan: continue lisinopril 10 mg daily (2) HLD (hyperlipidemia) Current Visit: Yes Status: Acute Plan: patient on Lipitor 40 mg daily (3) NSTEMI (non-ST elevated myocardial infarction) Current Visit: Yes Status: Acute Plan: plan for coronary angiogram today, Continue ASA 81 mg daily Continue Lovenox therapeutic get echo
[2024-03-21] MEDS ORDERED: HEPA 1000U/500MLS 2,000 UNIT/1,000 ML BAG IV ONE (11:14)
[2024-03-21] MEDS ORDERED: LIDOCAINE 1% 20 ML MDV ONE (11:14)
[2024-03-21] MEDS ORDERED: MIDAZOLAM HCL 2 MG/2 ML INJ ONE (11:14)
[2024-03-21] MEDS ORDERED: FENTANYL CITR 100 MCG/2 ML ONE (11:14)
[2024-03-21] MEDS ORDERED: TICAGRELOR 90 MG TABLET PO ONE (11:15)
[2024-03-21] MEDS ORDERED: HEPARIN 5000 UNIT/ML 1 ML VIAL ONE (11:15)
[2024-03-21] MEDS ORDERED: ATROPINE SULF 1 MG/10 ML SYR IV ONE (11:15)
[2024-03-21] MEDS ORDERED: HEPARIN 10,000 UNIT/10 ML VIAL IV ONE (11:15)
[2024-03-21] MEDS ORDERED: CLOPIDOGREL 75 MG TABLET ONE (11:16)
[2024-03-21] MEDS ORDERED: ASPIRIN 325 MG TAB ONE (11:16)
[2024-03-21] MEDS ORDERED: NA CHLORIDE 0.9% 1,000 ML ONE (11:38)
--- NOTE | 2024-03-21 12:42 | EKG ---
Test Date: 2024-03-20 Test Time: 21:51:11 Psych Therapist: SARY MEASUREMENT RESULTS: Intervals: Rate: 95 MS: 148 QRSD: 80 QT: 358 QTc: 449 [place]: P: 67 MS: 148 QRS: 51 T: 49 INTERPRETIVE STATEMENTS: Normal sinus rhythm Nonspecific ST abnormality Abnormal ECG Compared to ECG 05/16/2015 11:45:07 ST (T wave) deviation now present Electronically Signed On 03-21-24 12:41:28 CDT by Shayan Palafox
--- NOTE | 2024-03-21 13:46 | ECHO ---
HEIGHT: 5 ft 4 in WEIGHT: 183 lb 0 oz DATE OF STUDY: 03/21/[address]: Ronald Burrows DO 2-DIMENSIONAL: YES M.MODE: YES DOPPLER: YES COLOR FLOW: YES TDS: PORTABLE: YES DEFINITY: BUBBLE STUDY: DIAGNOSIS: NON ST ELEVATION MYOCARDIAL INFARCTION CARDIAC HISTORY: CATHERIZATION: YES SURGERY: PROSTHETIC VALVE: PACEMAKER: MEASUREMENTS (cm) DIASTOLIC (NORMALS) SYSTOLIC (NORMALS) IVSd 0.9 (0.6-1.2) LA Diam 4.1 (1.9-4.0) LVEF 55-60% LVIDd 4.0 (3.5-5.7) LVIDs 2.4 (2.0-3.5) %FS 40% LVPWd 1.1 (0.6-1.2) Ao Diam 2.3 (2.0-3.7) 2 DIMENSIONAL ASSESSMENT: RIGHT ATRIUM: NORMAL LEFT ATRIUM: NORMAL RIGHT VENTRICLE: NORMAL LEFT VENTRICLE: NORMAL TRICUSPID VALVE: TRACE TRICUSPID REGURGITATION MITRAL VALVE: TRACE MITRAL REGURGITATION PULMONIC VALVE: NORMAL AORTIC VALVE: TRACE AORTIC REGURGITATION PERICARDIAL EFFUSION: NONE AORTIC ROOT: NORMAL LEFT VENTRICULAR WALL MOTION: NORMAL DOPPLER/COLOR FLOW: NORMAL COMMENTS: 1. NORMAL LEFT VENTRICULAR SYSTOLIC FUNCTION, EJECTION FRACTION 55-60%, NORMAL WALL MOTION 2. MILD ELEVATED FILLING PRESSURE (RIGHT ATRIUM 10-15 mmHg) TECHNOLOGIST: GABRIEL ASHLEY
[2024-03-21] MEDS: ONDANSETRON 4 MG/2 ML VIAL ONE (14:24)
--- NOTE | 2024-03-21 15:49 | RAD REPORT ---
EXAM DESCRIPTION: RAD - Chest Single View - 03/20/2024 10:49 pm CLINICAL HISTORY: The patient is 68 years old and is Female; CHEST PAIN TECHNIQUE: Frontal view of the chest. COMPARISON: No relevant prior studies available. FINDINGS: LUNGS: Unremarkable. No consolidation. PLEURAL SPACE: Unremarkable. No pneumothorax. HEART: Unremarkable. No cardiomegaly. MEDIASTINUM: Unremarkable. Normal mediastinal contour. BONES/JOINTS: Multilevel degenerative change of the spine is present. No acute fracture. VASCULATURE: Atherosclerosis of the aorta is present. UPPER ABDOMEN: Unremarkable as visualized. IMPRESSION: No acute cardiopulmonary process. Electronically signed by: Briseyda Maria MD 03/20/2024 11:21 PM CDT RP Due to temporary technical issues with the PACS/Fluency reporting system, reports are being signed by the in house radiologists without review as a courtesy to insure prompt reporting. The interpreting radiologist is fully responsible for the content of the report.
--- NOTE | 2024-03-21 18:50 | OP ---
Date of Procedure: 03/21/2024 Surgeon: John Francisco Procedures Performed: 1.Left heart catheterization. 2.Selective coronary angiogram. 3.PCI of the OM1 with Synergy 2.5 x 38 mm overlapped with a 2.5 x 12 mm drug-eluting stents. Indication For Procedure: Ohl-MR-gsvyatqix CT. Complications: None. Estimated Blood Loss: Less than 50 cc. Sedation: Sedation time is 40 minutes with 1 of Versed and 25 of fentanyl. Access: Right radial, closed by TR band. Description Of Procedure: After risks, benefits, and alternatives were explained to the patient, the patient agreed to proceed with procedure and signed informed consent. The patient was brought back to the senior laboratory technician, prepped and draped in sterile fashion. Time-out was performed. Sedation was admini stered. Right radial access, ultrasound-guided micropuncture technique was obtained, [place] 4 cathete r was advanced into the LV cavity. LVEDP was obtained. Pullback did not show any gradient. Same ca theter was used for selective coronary angiogram with left and right coronary systems. That catheter was later exchanged for an XB LAD 3.0. Heparin was administered. ACT was therapeutic. Run-through wire through the lesions, pre-dilated the lesions with 2.25 mm balloon. Next, Synergy 2.5 x 38 mm d rug-eluting stents were placed across the lesion and that was overlapped with another 2.5 x 12 mm linda g-eluting stent distally to the lesion to overlap with the first stent, postdilated with 3.0 mm ballo on. Final angiogram shows KIMBERLY-3 flow. Wire was removed and guide was removed over a J-wire. Sheat h was removed and TR band was applied. The patient was moved back to recovery in stable condition. Findings: 1.Left main is normal. 2.LAD, proximal mild LI, then mid to distal diffuse 40% to 50% disease. RCA is small with diffuse d isease. 3.Left circ, mild luminal irregularities, gives large OM1/PLB with mid to distal 99% disease. PCI d one as above. 4.RCA, mild luminal irregularities. 5.LVEDP 12 mmHg. Assessment: 1.Significant OM1/LPO P2. PCI done with Synergy 2.5 x 38 mm overlapped with a 2.5 x 12 mm drug-elut ing stent. 2.Mild to moderate diffuse mid to distal LAD disease, artery is too small for interventions, we will keep medical management. Plan: 1.Aspirin 81 mg daily for life. 2.Brilinta 180 x1 was given in the lab, continue Brilinta 90 mg p.o. b.i.d. 3.Continue aggressive medical treatment for CAD. YADIRA Voice ID: [id number] Report ID: [id number]
[2024-03-21] MEDS: ENOXAPARIN 80 MG/0.8 ML SQ SCH (20:05)
[2024-03-21] MEDS: ATORVASTATIN 40 MG TAB PO SCH (20:05)
[2024-03-21] MEDS: TICAGRELOR 90 MG TABLET PO SCH (20:05)
[2024-03-22 03:58] LABS: Absolute Basophils 0.1 K/uL (0-0.5); Absolute Eosinophils 0.2 K/uL (0-0.5); Absolute Lymphocytes (CBC) 2.6 K/uL (0.7-4.9); Absolute Monocytes 0.6 K/uL (0.1-1.3); Absolute Neutrophil 4.9 K/uL (1.8-8.0); Basophils % 0.7 % (0-1.3); Hematocrit 42.4 % (36.0-45.0); Hemoglobin 14.1 g/dL (12.0-15.0); Lymphocytes % 31.6 % (15.3-44.8); MCH 29.9 pg (27.0-35.0); MCHC 33.3 g/dL (32.0-36.0); MCV 89.7 fL (80-100); MPV 8.5 fL (7.6-11.3); Monocytes % 6.9 % (3.3-12.3); Neutrophils % 58.8 % (41.7-73.7); Platelets 216 thou/uL (152-406); RBC Red Blood Cell Count 4.72 M/uL (3.86-4.86); Red Cell Distribution Width 13.3 % (12.1-15.2)
[2024-03-22 04:14] LABS: Albumin 3.1 g/dL (3.4-5.0); Albumin/Globulin Ratio 0.9 (1.1-1.8); Anion Gap 5.8 mEq/L (5.0-15.0); Bilirubin Total 0.6 mg/dL (0.2-1.0); Globulin 3.6 g/dL (2.3-3.5); Potassium 3.8 mEq/L (3.5-5.1); Protein, Total 6.7 g/dL (6.4-8.2)
[2024-03-22 05:06] VITALS: BMI 31.3
[2024-03-22] MEDS: NITROGLYCERIN 0.1 MG/HR (2.5 MG) PATCH TD SCH (09:00)
--- NOTE | 2024-03-22 09:34 | P.PN ---
Date of Service: 03/22/24 Subjective Post left heart cath with PCI 03/21 Review of Systems 10-point ROS is otherwise unremarkable Physical Examination - Vital Signs reviewed - Physical Exam General: Alert, In no apparent distress, AOX3 Neck: Supple, 2+ carotid pulse no bruit Respiratory: Clear to auscultation bilaterally, Normal air movement Cardiovascular: No edema, Regular rate/rhythm, Normal S1 S2 Capillary refill: <2 Seconds Gastrointestinal: Soft and benign, W/out hepatosplenomegaly Musculoskeletal: No clubbing Integumentary: No rashes, No breakdown Neurological: Normal speech, Normal strength at 5/5 x4 extr, Assessment and Plan - Problems (Diagnosis) NSTEMI Will trend cardiac enzymes Will monitor telemetry Started on aspirin and statin EKG did not show any acute changes s suggestive of ischemia Will get an echocardiogram Cardiology consult notified of elevated troponin Hypertension Antihypertensives titrated Continue home medications and titrate as needed Hyperlipidemia Continue statin Diabetes Insulin sliding scale Accu-Chek before every meal and at bedtime Anxiety Continue home medications and titrate as needed GI/DVT prophylaxis Advanced directive full code
[2024-03-22 09:39] VITALS: BP 158/72; TEMP 97.4
--- NOTE | 2024-03-22 09:39 | P.DS ---
Admission Date: 03/21/24 Discharge Date: 03/22/24 Disposition: ROUTINE DISCHARGE Discharge Condition: GOOD Reason for Admission: Chest Pain Brief History of Present Illness: 68 yrs old Female with past medical history of asthma, diabetes, hypertension, depression, came to ER with chest pain . Located retrosternally with no radiation started this afternoon associated with some shortness of breath. Denies any fever or chills. No nausea vomiting or diarrhea. Denies any diaphoresis. Pain is 3 out of 10 in severity at the time of interview. Better with morphine. Denies any previous history of CAD. Had an angiogram done few years ago which was normal as per the patient. Patient was assessed in the ER and was found to have elevated troponin and was admitted for further management - Physical Exam General: Alert, In no apparent distress, Oriented x3, Obese HEENT: Atraumatic, Normocephalic Neck: Supple, 2+ carotid pulse no bruit Respiratory: Clear to auscultation bilaterally, Normal air movement Cardiovascular: No edema, Regular rate/rhythm, Normal S1 S2 Capillary refill: <2 Seconds Gastrointestinal: Soft and benign, W/out hepatosplenomegaly Musculoskeletal: No clubbing Integumentary: No rashes, No breakdown Neurological: Normal speech, Normal strength at 5/5 x4 extr, Cranial nerves 3-12 intact, Normal reflexes 2+, Normal affect Lymphatics: No axilla or inguinal lymphadenopathy Hospital Course: 68 year-old patient presented with chest pain. Was evaluated by cardiology is status post heart cath with stent placement. Was noted to have elevated troponins. Condition improved with heart cath with a stent placement Patient tolerating diet, stable for discharge to home with follow-up appointment with primary care physician. Follow-up with cardiology after discharge PROBLEM: NSTEMI, elevated [id number] with cardiology after discharge Status post heart cath 03/21 with stent placed Left circ, mild luminal irregularities, gives large OM1/PLB with mid to distal 99% disease. PCI Hyperlipidemia continue antilipid Hypertension continue antihypertensive CAD aspirin 81 mg daily Brilinta twice daily Rad/Lab/Micro: Elevated troponin Continue home medicines as previously prescribed GOAL: Clear understanding of disease process INSTRUCTIONS: Physician Discharge Instructions: -Follow-up with PCP in 1 to 2 weeks -Please call Dr. Ziegler at [phone] if any questions regarding hospital stay -Please call nursing station at [phone] if any nursing or medication questions -Return to the emergency room if symptoms worsen Diet: ADA, low sodium Activity: Fall precautions Vital Signs/Physical Exam: Temp Pulse Resp BP Pulse Ox 97.4 F 65 18 158/72 H 98 03/22/24 08:00 03/22/24 08:00 03/22/24 08:00 03/22/24 08:00 03/22/24 08:00 Laboratory Data at Discharge: WBC 8.30 thou/uL (4.3-10.9) 03/22/24 03:43 Hgb 14.1 g/dL (12.0-15.0) 03/22/24 03:43 Hct 42.4 % (36.0-45.0) 03/22/24 03:43 Plt Count 216 thou/uL (152-406) 03/22/24 03:43 PT 10.9 SECONDS (9.4-12.5) 03/20/24 22:30 INR 0.99 03/20/24 22:30 APTT 60.7 SECONDS (24.3-36.9) H 03/20/24 22:30 Sodium 138 mEq/L (136-145) 03/22/24 03:43 Potassium 3.8 mEq/L (3.5-5.1) 03/22/24 03:43 BUN 8 mg/dL (7-18) 03/22/24 03:43 Creatinine 0.57 mg/dL (0.55-1.02) 03/22/24 03:43 Glucose 171 mg/dL (74-106) H 03/22/24 03:43 Total Bilirubin 0.6 mg/dL (0.2-1.0) 03/22/24 03:43 AST 15 U/L (15-37) 03/22/24 03:43 ALT 24 U/L (13-56) 03/22/24 03:43 Alkaline Phosphatase 73 U/L (45-117) 03/22/24 03:43 Home Medications: Levothyroxine [Synthroid*] 0.025 mg PO 0600 05/16/15 Amlodipine Besylate 5 mg PO DAILY 03/21/24 Empagliflozin [Jardiance] 25 mg PO DAILY 03/21/24 Gabapentin 300 mg PO BID 03/21/24 Losartan Potassium 100 mg PO DAILY 03/21/24 Montelukast [Singulair*] 10 mg PO BEDTIME 03/21/24 Omeprazole [Prilosec] 40 mg PO DAILY 03/21/24 Rosuvastatin Calcium 20 mg PO BEDTIME 03/21/24 Semaglutide [Ozempic] 0.25 mg SQ SEECOM 03/21/24 Venlafaxine HCl [Venlafaxine HCl ER] 150 mg PO BID 03/21/24 Aspirin [Aspirin EC 81 MG] 81 mg PO DAILY #30 tab 03/22/24 Hydrocodone 10/APAP 325 [[place] 10/325*] 1 tab PO Q6HP PRN #30 tab 03/22/24 Ticagrelor [Brilinta*] 90 mg PO BID #60 tab 03/22/24 New Medications: Aspirin [Aspirin EC 81 MG] 81 mg PO DAILY #30 tab Ticagrelor [Brilinta*] 90 mg PO BID #60 tab Hydrocodone 10/APAP 325 [[place] 10/325*] 1 tab PO Q6HP PRN #30 tab PRN Reason: Pain Scale 5-7 (Moderate) Physician Discharge Instructions: -DC IV and DC home -Follow-up with PCP in 1 to 2 weeks -Follow-up with Cardiology in 1 to 2 weeks -Please call Dr. Ziegler at [phone] if any questions regarding hospital stay -Please call nursing station at [phone] if any nursing or medication questions -Return to the emergency room if symptoms worsen Diet: AHA Activity: Fall precautions Followup: Kane Gudino MD [Primary Care Provider] - 1-2 Weeks Physician Review: Patient Assessed, Agree with Above Assessment and Plan Time spent managing pt's care (in minutes): 55
[2024-03-22 10:00] VITALS: O2SAT 98
--- NOTE | 2024-03-22 10:37 | P.PN ---
Subjective Date of Service: 03/22/24 Chief Complaint: Chest Pain Subjective: No new changes, No C/O voiced, Tolerating diet, Ambulating, Improving Review of Systems 10-point ROS is otherwise unremarkable Physical Examination - Vital Signs Temperature: 97.4 F Blood Pressure: 158/72 Pulse: 65 Respirations: 18 Pulse Ox (%): 98 - Physical Exam General: Alert, In no apparent distress HEENT: Atraumatic, PERRLA, EOMI Neck: Supple, JVD not distended Respiratory: Clear to auscultation bilaterally, Normal air movement Cardiovascular: Regular rate/rhythm, Normal S1 S2 Gastrointestinal: Normal bowel sounds, No tenderness Musculoskeletal: No tenderness Integumentary: No rashes Neurological: Normal speech, Normal tone, Normal affect Lymphatics: No axilla or inguinal lymphadenopathy - Studies Medications List Reviewed: Yes Assessment And Plan - Current Problems (Diagnosis) (1) HTN (hypertension) Current Visit: Yes Status: Acute Plan: continue lisinopril 10 mg daily (2) HLD (hyperlipidemia) Current Visit: Yes Status: Acute Plan: patient on Lipitor 40 mg daily (3) NSTEMI (non-ST elevated myocardial infarction) Current Visit: Yes Status: Acute Plan: patient is s/p PCI of OM, Continue ASA 81 mg daily Continue Brilinta 90 mg po BID Continue Lipitor OK to discharge. Physician Review: Patient Assessed, Agree with Above Assessment and Plan
--- NOTE | 2024-03-23 14:11 | EKG ---
Test Date: 2024-03-21 Test Time: 19:48:10 Electrical Maintenance Worker: BURKE MEASUREMENT RESULTS: Intervals: Rate: 66 NE: 160 QRSD: 80 QT: 400 QTc: 419 [place]: P: 59 NE: 160 QRS: 42 T: 54 INTERPRETIVE STATEMENTS: Normal sinus rhythm Low voltage QRS Borderline ECG Compared to ECG 03/20/2024 21:51:11 Low QRS voltage now present ST (T wave) deviation no longer present Electronically Signed On 03-23-24 14:07:33 CDT by Shayan Palafox
== END 2024-03-22 11:30 | disposition home or self-care (01) ==
LOC: ER 21:43 → ERHOLD 03-21 00:37 → 2ND 03-21 14:31
PROVIDERS: ADMIT Family Medicine; ATTEND Hospitalist
PROC: 027035Z Dilation of Coronary Artery, One Artery with Two Drug-eluting Intraluminal Devices, Percutaneous Approach (ICD-10-PCS; principal; 2024-03-21)
PROC: 4A023N7 Measurement of Cardiac Sampling and Pressure, Left Heart, Percutaneous Approach (ICD-10-PCS; 2024-03-21)
PROC: B2111ZZ Fluoroscopy of Multiple Coronary Arteries using Low Osmolar Contrast (ICD-10-PCS; 2024-03-21)
DX: I21.4 Non-ST elevation (NSTEMI) myocardial infarction (principal); I25.10 Atherosclerotic heart disease of native coronary artery without angina pectoris; I10 Essential (primary) hypertension; E11.9 Type 2 diabetes mellitus without complications; E78.5 Hyperlipidemia, unspecified; F41.9 Anxiety disorder, unspecified; F32.A Depression, unspecified; J45.909 Unspecified asthma, uncomplicated; Z79.899 Other long term (current) drug therapy; Z88.1 Allergy status to other antibiotic agents; Z88.5 Allergy status to narcotic agent; Z90.49 Acquired absence of other specified parts of digestive tract; Z90.710 Acquired absence of both cervix and uterus; Z79.84 Long term (current) use of oral hypoglycemic drugs; Z88.2 Allergy status to sulfonamides
CPT/HCPCS: 93005; 93306; 85025 ×2; 80048; 36415 ×2; 85610; 82947 ×4; 85347 ×3; 85730; 84484 ×4; 80053; 83880; 71045; 93458; 76937; 94760 ×4; C1893; Q9967; C1725; C1877; C9600; J1644; J1650 ×2; J2001; J2250; J3010; J2405 ×4; J7030 ×2; 96361; 96372; 96374; 96375; 99152; 99153; 99285; G0378; J0461

== ENCOUNTER 2024-10-09 16:01 | Emergency (ER) | payer MEDICARE ==
[2024-10-09] MEDS ORDERED: NA CHLORIDE 0.9% 1,000 ML ONE ×2 (17:22→17:56)
[2024-10-09 17:27] LABS: Absolute Basophils 0.1 K/uL (0-0.5); Absolute Eosinophils 0.1 K/uL (0-0.5); Absolute Lymphocytes (CBC) 1.9 K/uL (0.7-4.9); Absolute Monocytes 0.9 K/uL (0.1-1.3); Absolute Neutrophil 11.3 K/uL (1.8-8.0); Basophils % 0.5 % (0-1.3); Hematocrit 46.5 % (36.0-45.0); Hemoglobin 15.5 g/dL (12.0-15.0); MCH 29.9 pg (27.0-35.0); MCHC 33.4 g/dL (32.0-36.0); MCV 89.4 fL (80-100); MPV 8.5 fL (7.6-11.3); Monocytes % 6.4 % (3.3-12.3); Neutrophils % 79.1 % (41.7-73.7); Nucleated Red Blood Cells % 0.1 % (0-0); Platelets 307 thou/uL (152-406); Red Cell Distribution Width 13.6 % (12.1-15.2)
[2024-10-09 17:44] LABS: Albumin 3.4 g/dL (3.4-5.0); Albumin/Globulin Ratio 0.8 (1.1-1.8); Anion Gap 11.5 mEq/L (5.0-15.0); Bilirubin Total 0.5 mg/dL (0.2-1.0); Globulin 4.5 g/dL (2.3-3.5); Potassium 3.5 mEq/L (3.5-5.1); Protein, Total 7.9 g/dL (6.4-8.2)
--- NOTE | 2024-10-09 19:29 | RAD REPORT ---
EXAMINATION: CT Abdomen Pelvis W Contrast CLINICAL INDICATION: Female, 69 years old. ABD PAIN TECHNIQUE: CT abdomen and pelvis was performed, after the administration of IV contrast, [facility]. Axial, sagittal and coronal reconstructions were obtained. One or more of the following dose reduction techniques were used: Automated exposure control, adjustment of the mA and k V according to patient size, and iterative reconstruction. Unless otherwise specified, incidental findings do not require dedicated imaging follow-up. COMPARISON: No prior exam. FINDINGS: LOWER CHEST: The visualized lung bases are clear. LIVER: Normal in size and contour. No focal lesion. BILIARY SYSTEM: Status post cholecystectomy. SPLEEN: Normal size. No focal lesion. PANCREAS: No mass, ductal dilation, or kiley-pancreatic fluid. ADRENALS: Normal; no mass. KIDNEYS: Normal size and contour. No hydronephrosis. URINARY BLADDER: Unremarkable. GASTROINTESTINAL TRACT: No evidence of free air, significant intra-abdominal free fluid, bowel obstru ction or abscess. 3.5 cm lipoma versus epiploic appendage along the ascending colon. Mild sigmoid diverticulosis APPENDIX: Normal not seen appendix. LYMPH NODES: No lymphadenopathy. MUSCULOSKELETAL: No acute or suspicious osseous abnormality. ADDITIONAL FINDINGS: None. IMPRESSION: No acute or concerning abnormalities seen in the abdomen or pelvis.
--- NOTE | 2024-10-09 19:36 | EDPHYS ---
Physician Documentation [facility] Name: Amber Petersen Age: 69 yrs Sex: Female : 1955 Arrival Date: 10/09/2024 Time: 16:01 Bed 8 Private MD: ED Physician Ricardo Mclean HPI: 10/09 17:02 This 69 yrs old Female presents to ER via Ambulatory with complaints of sb4 Vomiting/Diarrhea, Weakness. 17:02 The patient presents to the emergency department with nausea, vomiting, diarrhea, sb4 abdominal pain, of the epigastric area. Onset: The symptoms/episode began/occurred 3 day(s) ago. Possible causes: unknown. Patient reports nausea, vomiting, diarrhea, and mild upper abdominal pain x 3 days. States that the vomiting started yesterday but the diarrhea has persisted. States that she cannot control the diarrhea episodes despite taking Imodium. States that her diarrhea is watery, denies any mucus or blood in it. Denies any recent antibiotic use. Reports a history of diverticulitis several years ago. Denies any known fever. Historical: - Allergies: 16:24 Codeine; cm10 16:24 Sulfa (Sulfonamide Antibiotics); cm10 - PMHx: 16:24 Asthma; DM; HTN; depressive disorder; Myocardial infarction; cm10 - PSHx: 16:24 SHAYNE knee surgeries; Cholecystectomy; hysterectomy; tubal; Cardiac Stent; cm10 - Immunization history:: Adult Immunizations up to date. - Infectious Disease History:: Denies. - Social history:: Smoking status: Patient denies any tobacco usage or history of. ROS: 17:02 Constitutional: Negative for fever, chills, and weight loss, sb4 17:02 Abdomen/GI: Positive for abdominal pain, nausea, vomiting, and diarrhea, 17:02 All other systems are negative, Exam: 17:02 Head/Face: Normocephalic, atraumatic. Eyes: Extra-ocular motions intact. Periorbital sb4 areas with no swelling, redness, or edema. Cardiovascular: Regular rate and rhythm with a normal S1 and S2. Respiratory: No increased work of breathing, no retractions or nasal flaring. Skin: Warm, dry with normal turgor. Normal color with no rashes, no lesions, and no evidence of cellulitis. 17:02 Constitutional: The patient appears alert, awake, pale, 17:02 ENT: Mouth: Oral mucosa: dry, 17:02 Abdomen/GI: Inspection: abdomen appears normal, Palpation: soft, mild abdominal tenderness, in the epigastric area, Vital Signs: 16:22 BP 142 / 79; Pulse 99; Resp 19; Temp 97.3; Pulse Ox 97% on R/A; Weight 80.74 kg; Height cm10 5 ft. 4 in. ; Pain 7/10; 17:25 BP 130 / 66; Pulse 86; Resp 16 S; Pulse Ox 100% on R/A; kc6 18:27 BP 116 / 52; Pulse 66; Resp 16 S; Pulse Ox 100% on R/A; kc6 19:59 BP 137 / 62; Pulse 69; Resp 17; Temp 98.3; Pulse Ox 99% ; jj7 16:22 Body Mass Index 30.55 (80.74 kg, 162.56 cm) cm10 16:22 Pain Scale: Adult cm10 MDM: 16:26 Medical Screening Exam initiated sb4 18:35 Differential diagnosis: diverticulitis, viral gastroenteritis, gastroenteritis, sb4 colitis. Data reviewed: vital signs, nurses notes, lab test result(s), radiologic studies. Care significantly affected by the following chronic conditions: Diabetes, Hypertension. Counseling: I had a detailed discussion with the patient and/or guardian regarding the historical points, exam findings, and any diagnostic results supporting the discharge/admit diagnosis, lab results, radiology results. 19:34 ED course: patient feels much better, has not had any episodes of vomiting or diarrhea. sb4 will discharge home. 10/09 16:38 Order name: CBC with Diff; Complete Time: 17:31 sb4 10/09 16:38 Order name: CMP; Complete Time: 17:44 sb4 10/09 16:38 Order name: Lipase; Complete Time: 17:44 sb4 10/09 17:45 Order name: CT Abd/Pelvis - IV Contrast Only; Complete Time: 19:30 sb4 10/09 16:38 Order name: IV Saline Lock; Complete Time: 17:25 sb4 10/09 16:38 Order name: Labs collected and sent; Complete Time: 17:25 sb4 Administered Medications: 17:25 Drug: NS 0.9% IV 1000 ml IV at 1 bolus Per protocol; to be given as a bolus over 60 kc6 minutes Route: IV; Rate: 1 bolus; Site: right forearm; 19:00 Follow up: IV Status: Completed infusion jj7 18:21 Drug: NS 0.9% IV 1000 ml IV at 1 bolus Per protocol; to be given as a bolus over 60 kc6 minutes Route: IV; Rate: 1 bolus; Site: right forearm; 20:00 Follow up: IV Status: Completed infusion jj7 Disposition Summary: 10/09/24 19:35 Discharge Ordered Notes: Location: Home sb4 Problem: new sb4 Symptoms: have improved sb4 Condition: Stable sb4 Diagnosis - Viral gastroenteritis sb4 Followup: sb4 - With: Emergency Department - When: As needed - Reason: Trouble breathing, Worsening of condition Discharge Instructions: - Discharge Summary Sheet sb4 - Viral Gastroenteritis, Adult, [id number] sb4 Forms: - Patient Portal Instructions sb4 - Leadership Thank You Letter sb4 Prescriptions: - Zofran 4 mg Oral Tablet - take 1 tablet ORAL route every 12 hours As needed; 20 tablet; Refills: 0, sb4 Product Selection Permitted Addendum: 10/13/2024 09:38 Co-signature as Attending Physician, Ricardo Mclean MD I reviewed the patient's care r n provided by the Advanced Practice Provider and agree with the diagnosis and treatment plan. Signatures: Dispatcher [employer] EDRicardo Richardson MD MD rn Campbell, Kaitlyn RN RN kc6 Concepción Sim PA-C PAJaquelin sb4 Vashti Bryant RN RN cm10 Laura Tam RN jj7 Corrections: (The following items were deleted from the chart) 10/09 17:45 17:45 Abdomen Pelvis W Con+CT.RAD.BRZ ordered. EDMD EDMS
--- NOTE | 2024-10-09 19:36 | ER ---
Nurse's Notes [facility] Name: Amber Petersen Age: 69 yrs Sex: Female : 1955 Arrival Date: 10/09/2024 Time: 16:01 Bed 8 Private MD: Diagnosis: Viral gastroenteritis Presentation: 10/09 16:22 Chief complaint: Patient states: Vomiting and diarrhea onset Wednesday. Pt reports no cm10 vomiting since yesterday. Pt reports, "I have gone through 41 depends since Wednesday." Pt also reports abdominal pain. Coronavirus screen: Client denies travel out of the [place] in the last 14 days. Ebola Screen: Patient denies travel to an Ebola-affected area in the 21 days before illness onset. Initial Sepsis Screen: Does the patient meet any 2 criteria? HR > 90 bpm. Does the patient have a suspected source of infection? No. Patient's initial sepsis screen is negative. Risk Assessment: Do you want to hurt yourself or someone else? Patient reports no desire to harm self or others. Onset of symptoms was October 06, 2024. 16:22 Method Of Arrival: Ambulatory cm10 16:22 Acuity: LIVAN 3 cm10 Triage Assessment: 16:25 General: Appears in no apparent distress. uncomfortable, Behavior is calm, cooperative. cm10 Pain: Complains of pain in abdomen Pain currently is 7 out of 10 on a pain scale. Neuro: No deficits noted. Level of Consciousness is awake, alert, obeys commands, Oriented to person, place, time, situation, Appropriate for age. Respiratory: No deficits noted. Airway is patent Respiratory effort is even, unlabored, Respiratory pattern is regular, symmetrical. Historical: - Allergies: 16:24 Codeine; cm10 16:24 Sulfa (Sulfonamide Antibiotics); cm10 - PMHx: 16:24 Asthma; DM; HTN; depressive disorder; Myocardial infarction; cm10 - PSHx: 16:24 SHAYNE knee surgeries; Cholecystectomy; hysterectomy; tubal; Cardiac Stent; cm10 - Immunization history:: Adult Immunizations up to date. - Infectious Disease History:: Denies. - Social history:: Smoking status: Patient denies any tobacco usage or history of. Screenin:57 [facility] ED Fall Risk Assessment (Adult) History of falling in the last 3 months, ap3 including since admission No falls in past 3 months (0 pts) Confusion or Disorientation No (0 pts) Intoxicated or Sedated No (0 pts) Impaired Gait No (0 pts) Mobility Assist Device Used No (0 pt) Altered Elimination No (0 pt) Score/Fall Risk Level 0 - 2 = Low Risk Oriented to surroundings, Maintained a safe environment, Educated pt \\T\\ family on fall prevention, incl call for assistance when getting out of bed, Assessed \\T\\ reinforced patient's understanding of fall precautions, Hourly rounding (assess needs \\T\\ fall precautionary measures) done, Used ambulatory aids as needed (educated on \\T\\ assisted with), Used gait belt as appropriate. Abuse screen: Denies threats or abuse. Nutritional screening: No deficits noted. Tuberculosis screening: No symptoms or risk factors identified. Assessment: 18:27 Reassessment: Patient appears in no apparent distress at this time. No changes from kc6 previously documented assessment. Patient and/or family updated on plan of care and expected duration. Pain level reassessed. Patient is alert, oriented x 3, equal unlabored respirations, skin warm/dry/pink. 19:15 Reassessment: Patient and/or family updated on plan of care and expected duration. Pain br2 level reassessed. Patient is alert, oriented x 3, equal unlabored respirations, skin warm/dry/pink. Patient states feeling better. Patient states symptoms have improved. Reassessment: PT OUT OF BED AND AMBULATES TO BATHROOM, NO DISTRESS NOTED. General: Appears in no apparent distress. comfortable, Behavior is calm, cooperative. GI:. GI: Reports FEELING BETTER, NO DIARRHEA WHILE IN ER. Vital Signs: 16:22 BP 142 / 79; Pulse 99; Resp 19; Temp 97.3; Pulse Ox 97% on R/A; Weight 80.74 kg; Height cm10 5 ft. 4 in. ; Pain 7/10; 17:25 BP 130 / 66; Pulse 86; Resp 16 S; Pulse Ox 100% on R/A; kc6 18:27 BP 116 / 52; Pulse 66; Resp 16 S; Pulse Ox 100% on R/A; kc6 19:59 BP 137 / 62; Pulse 69; Resp 17; Temp 98.3; Pulse Ox 99% ; jj7 16:22 Body Mass Index 30.55 (80.74 kg, 162.56 cm) cm10 16:22 Pain Scale: Adult cm10 ED Course: 16:04 Patient arrived in ED. ra3 16:06 Concepción Sim PA-C is PHCP. sb4 16:06 Ricardo Mclean MD is Attending Physician. sb4 16:24 Triage completed. cm10 16:25 Arm band placed on right wrist. Patient placed in waiting room. cm10 16:57 Lily Strickland, RN is Primary Nurse. ap3 16:57 Patient has correct armband on for positive identification. Bed in low position. Call ap3 light in reach. Side rails up X 1. Adult w/ patient. Provided Education on: fall risk education . Pulse ox on. NIBP on. 17:25 Initial lab(s) drawn, by me, sent to lab. Inserted saline lock: 20 gauge in right kc6 forearm, using aseptic technique. Blood collected. Flushed with 10 mL NS. Patient maintains SpO2 saturation greater than 95% on room air. 18:08 CT Abd/Pelvis - IV Contrast Only In Process Unspecified. EDMS 20:03 No provider procedures requiring assistance completed. IV discontinued, intact, jj7 bleeding controlled, No redness/swelling at site. Pressure dressing applied. Administered Medications: 17:25 Drug: NS 0.9% IV 1000 ml IV at 1 bolus Per protocol; to be given as a bolus over 60 kc6 minutes Route: IV; Rate: 1 bolus; Site: right forearm; 19:00 Follow up: IV Status: Completed infusion jj7 18:21 Drug: NS 0.9% IV 1000 ml IV at 1 bolus Per protocol; to be given as a bolus over 60 kc6 minutes Route: IV; Rate: 1 bolus; Site: right forearm; 20:00 Follow up: IV Status: Completed infusion jj7 Medication: 20:04 VIS not applicable for this client. jj7 Outcome: 19:35 Discharge ordered by . sb4 20:03 Discharged to home ambulatory, with significant other, jj7 20:03 Condition: improved 20:03 Discharge instructions given to patient, Instructed on discharge instructions, medication usage, Demonstrated understanding of instructions, medications, Prescriptions given X 1, 20:05 Patient left the ED. jj7 Signatures: Dispatcher [employer] EDMS Lily Strickland, RN RN ap3 Ya Sparrow RN RN kc6 Laura Tam, RN RN jj7 Concepción Sim, PADedraC PA-C [email or web address] Vashti Bryant, RN RN cm10 Kate Damon ra3 Gabi Scott, RN RN br2
[2024-10-10 17:05] VITALS: BP 137/62; TEMP 98.3; O2SAT 99
== END 2024-10-09 20:05 | disposition home or self-care (01) ==
LOC: ER 16:01
DX: A08.4 Viral intestinal infection, unspecified (principal); E11.9 Type 2 diabetes mellitus without complications; I10 Essential (primary) hypertension; Z95.818 Presence of other cardiac implants and grafts
CPT/HCPCS: 96361; 85025; 36415; 83690; 80053; 74177; 96360; 99284; Q9967; J7030 ×2

== ENCOUNTER 2025-01-24 04:42 | Emergency (ER) | payer MEDICARE ==
[2025-01-24] MEDS ORDERED: CEFTRIAXONE 1000 MG/VIAL ONE (05:21)
[2025-01-24] MEDS ORDERED: ONDANSETRON 4 MG/2 ML VIAL ONE (05:21)
[2025-01-24] MEDS ORDERED: TRAMADOL HCL 50 MG TAB ONE ×2 (05:22→05:30)
[2025-01-24] MEDS ORDERED: METOCLOPRAMIDE 10 MG/2mL INJ ONE (05:22)
[2025-01-24 05:28] LABS: Absolute Basophils 0.1 K/uL (0-0.5); Absolute Eosinophils 0.1 K/uL (0-0.5); Absolute Lymphocytes (CBC) 1.9 K/uL (0.7-4.9); Absolute Monocytes 0.7 K/uL (0.1-1.3); Absolute Neutrophil 5.6 K/uL (1.8-8.0); Basophils % 0.7 % (0-1.3); Eosinophils % 1.8 % (0-4.4); Hematocrit 42.1 % (36.0-45.0); Hemoglobin 14.3 g/dL (12.0-15.0); Lymphocytes % 22.5 % (15.3-44.8); MCH 30.5 pg (27.0-35.0); MCHC 33.9 g/dL (32.0-36.0); MCV 90.1 fL (80-100); MPV 8.2 fL (7.6-11.3); Monocytes % 8.3 % (3.3-12.3); Neutrophils % 66.7 % (41.7-73.7); Platelets 362 thou/uL (152-406); RBC Red Blood Cell Count 4.68 M/uL (3.86-4.86)
[2025-01-24 05:35] LABS: PT Prothrombin Time 13.2 SECONDS (10-13.0); Protime INR 1.17
[2025-01-24 05:55] LABS: Albumin 3.6 g/dL (3.4-5.0); Albumin/Globulin Ratio 0.7 (1.1-1.8); Anion Gap 9.6 mEq/L (5.0-15.0); Bilirubin Total 0.5 mg/dL (0.2-1.0); Globulin 4.9 g/dL (2.3-3.5); Magnesium 2.1 mg/dL (1.6-2.4); Potassium 3.6 mEq/L (3.5-5.1); Protein, Total 8.5 g/dL (6.4-8.2); Troponin High Sensitivity 3.6 pg/mL (<58.9)
--- NOTE | 2025-01-24 06:10 | RAD REPORT ---
EXAM: Chest Single View HISTORY: 69 years Female CHEST PAIN COMPARISON: 03/20/2024 FINDINGS: LUNGS/PLEURA: The lungs are clear. No pleural effusions or pneumothorax. No pulmonary edema. CARDIAC/MEDIASTINUM: The cardiac silhouette is within normal limits. UPPER ABDOMEN: No significant abnormality. BONES: No acute abnormality. LINES/TUBES/OTHER: N/A IMPRESSION: No evidence of acute cardiopulmonary disease. No significant change from prior.
--- NOTE | 2025-01-24 06:12 | RAD REPORT ---
EXAM: Foot Left 3 View HISTORY: left foot redness COMPARISON: None FINDINGS: Bones: No acute fracture identified. Sclerotic focus either in the calcaneus or adjacent to it and of doubtful acute clinical significance. Alignment:No significant malalignment. Degenerative changes:Calcaneal spurring. Midfoot degenerative changes. Other: No radiographic evidence of osteomyelitis. IMPRESSION: No acute osseous abnormality. No radiographic evidence of osteomyelitis. MRI more sensitive in the ac anil phase.
--- NOTE | 2025-01-24 06:48 | ER ---
Nurse's Notes [facility] Name: Amber Petersen Age: 69 yrs Sex: Female : 1955 Arrival Date: 01/24/2025 Time: 04:42 Bed 7 Private MD: Kane Gudino Atiq Diagnosis: Acute gastroenteritis, acute nausea and vomiting, Elevated blood pressure, encounter for postoperative wound check left foot and heel Presentation: 01/24 05:19 Chief complaint: Patient states: weakness with some epigastric pain, left foot swollen. vc1 Having hot and cold flashes. BP at home was 181/88. Coronavirus screen: Client denies travel out of the [place] in the last 14 days. At this time, the client does not indicate any symptoms associated with coronavirus-19. Ebola Screen: Patient negative for fever greater than or equal to 101.5 degrees Fahrenheit, and additional compatible Ebola Virus Disease symptoms Patient denies exposure to infectious person. Patient denies travel to an Ebola-affected area in the 21 days before illness onset. No symptoms or risks identified at this time. Initial Sepsis Screen: Does the patient meet any 2 criteria? No. Patient's initial sepsis screen is negative. Does the patient have a suspected source of infection? No. Patient's initial sepsis screen is negative. Risk Assessment: Do you want to hurt yourself or someone else? Patient reports no desire to harm self or others. Onset of symptoms is unknown. 05:19 Method Of Arrival: Wheelchair vc1 05:19 Acuity: LIVAN 3 vc1 Triage Assessment: 05:30 General: Appears in no apparent distress. uncomfortable, Behavior is calm, cooperative, vc1 agitated. General: Reports chills for feeling ill for. Pain: Complains of pain in left foot and left hip Pain does not radiate. EENT: No deficits noted. No signs and/or symptoms were reported regarding the EENT system. Neuro: Level of Consciousness is awake, alert, obeys commands, Oriented to person, place, time, situation, Appropriate for age. Cardiovascular: Denies chest pain, Heart tones S1 S2 present Capillary refill < 3 seconds Patient's skin is warm and dry. Rhythm is regular. Respiratory: Airway Breath sounds are clear bilaterally. GI: Reports epigastric pain, vomiting. : No deficits noted. No signs and/or symptoms were reported regarding the genitourinary system. Derm: Skin is normal, Skin temperature is warm Wound noted left foot. Musculoskeletal: Circulation, motion, and sensation intact. Range of motion: limited in left hip. Historical: - Allergies: 05:22 Codeine; vc1 05:22 Sulfa (Sulfonamide Antibiotics); vc1 05:22 TETRACYCLINES; vc1 - Home Meds: 05:22 amlodipine 5 mg oral tablet [Active]; glipizide 5 mg oral tablet [Active]; metoprolol vc1 succinate 50 mg oral Tablet, Extended Release 24 hr [Active]; ondansetron HCl 8 mg Oral tablet 2 times per day [Active]; [place] 7.5 mg Oral [Active]; gabapentin 300 mg oral capsule 2 times per day [Active]; pantoprazole 40 mg oral tablet, delayed release (enteric coated) [Active]; fenofibrate oral 145 mg [Active]; levothyroxine 25 mcg oral capsule [Active]; Brilinta 90 mg oral tablet 2 times per day [Active]; venlafaxine 150 mg oral Capsule, ER 24 hr [Active]; methocarbamol 500 mg oral tablet 3 times per day [Active]; - PMHx: 05:22 Asthma; depressive disorder; DM; HTN; Myocardial infarction; vc1 - PSHx: 05:22 SHAYNE knee surgeries; cardiac stent; Cholecystectomy; hysterectomy; tubal; left foot vc1 surgery (tubal); left hip surgery (tubal); - Immunization history:: Client reports receiving the 2nd dose of the Covid vaccine, Flu vaccine is not up to date. - Infectious Disease History:: Denies. - Social history:: Smoking status: Patient denies any tobacco usage or history of. - Family history:: not pertinent. Screenin:32 [facility] ED Fall Risk Assessment (Adult) History of falling in the last 3 months, vc1 including since admission Yes- fall prone (multiple falls) (3 pts) Confusion or Disorientation No (0 pts) Intoxicated or Sedated No (0 pts) Impaired Gait Yes (1 pt) Mobility Assist Device Used Yes (1 pt) Altered Elimination No (0 pt) Score/Fall Risk Level 3 or more points = High Risk Oriented to surroundings, Maintained a safe environment, Educated pt \T\ family on fall prevention, incl call for assistance when getting out of bed, Provided non-skid footwear, Hourly rounding (assess needs \T\ fall precautionary measures) done. Abuse screen: Denies threats or abuse. Nutritional screening: No deficits noted. Tuberculosis screening: No symptoms or risk factors identified. Assessment: 07:30 Reassessment: Patient appears in no apparent distress at this time. Patient and/or db family updated on plan of care and expected duration. Pain level reassessed. Patient is alert, oriented x 3, equal unlabored respirations, skin warm/dry/pink. General: Appears in no apparent distress. comfortable, Behavior is calm, cooperative. Neuro: Level of Consciousness is awake, alert, obeys commands, Oriented to person, place, time, situation. Respiratory: Airway is patent Respiratory effort is even, unlabored, Respiratory pattern is regular, symmetrical. GI: Abdomen is flat. Vital Signs: 05:19 BP 149 / 91; Pulse 75; Resp 16; Temp 98.5; Pulse Ox 97% ; Weight 83.91 kg; Height 5 ft. vc1 4 in. ; 06:30 BP 127 / 56; Pulse 74; Resp 18; Pulse Ox 97% ; cp4 07:30 BP 127 / 59; Pulse 66; Resp 15; Pulse Ox 98% on R/A; db 05:19 Body Mass Index 31.75 (83.91 kg, 162.56 cm) vc1 [place] Coma Score: 06:54 Eye Response: spontaneous(4). Motor Response: obeys commands(6). Verbal Response: sp4 oriented(5). Total: 15. ED Course: 04:45 Patient arrived in ED. gm2 04:46 Kane Gudino MD is Private Physician. gm2 04:46 Bonifacio Rodriguez MD is Attending Physician. sp4 05:10 Muna Shankar is Primary Nurse. cp4 05:22 Triage completed. vc1 05:25 XRAY Chest (1 view) In Process Unspecified. EDMS 05:25 Foot Left 3 View XRAY In Process Unspecified. EDMS 05:30 Arm band placed on right wrist. vc1 05:32 Patient has correct armband on for positive identification. Placed in gown. Bed in low vc1 position. Call light in reach. Side rails up X2. Adult w/ patient. residential monitor on. Pulse ox on. NIBP on. 06:58 Dressings: Kerlix X 1; left foot Vaseline gauze X 1; left foot 4X4s X 1; left foot maday cp4 wrap. 07:02 Extremity Venous Uni Ltd US In Process Unspecified. EDMS 07:30 Provided Education on: DISCHARGE AND FOLLOWUP. Warm blanket given. Pillow given. db 07:30 No provider procedures requiring assistance completed. db 07:45 IV discontinued, intact, bleeding controlled, No redness/swelling at site. db Administered Medications: 05:28 Drug: metoCLOPramide IVP 10 mg IVP once; over 1 to 2 minutes Route: IVP; Site: right cp4 antecubital; 06:55 Follow up: Response: No adverse reaction cp4 05:28 Drug: Rocephin - Rocephin (cefTRIAXone) IVPB 1 grams IVPB once over 30 mins; (mix in 50 cp4 mL NS) Route: IVPB; Infused Over: 30 mins; Site: right antecubital; 06:54 Follow up: Response: No adverse reaction; IV Status: Completed infusion cp4 05:28 Drug: traMADol PO 100 mg PO once Route: PO; cp4 06:54 Follow up: Response: No adverse reaction cp4 05:29 Drug: Ondansetron IVP 4 mg IVP once; over 2 minutes Route: IVP; Site: right antecubital;cp4 06:55 Follow up: Response: No adverse reaction cp4 Medication: 05:32 VIS not applicable for this client. vc1 Outcome: 06:48 Discharge ordered by . spMarcel 07:45 Discharged to home via wheelchair, with family, db 07:45 Condition: stable 07:45 Discharge instructions given to patient, family, Instructed on discharge instructions, Prescriptions given X 2, 07:51 Patient left the ED. ph Signatures: Dispatcher [employer] EDWV Sarah Sotomayor RN RN ph Calcote, Vanessa RN RN vc1 Ariella Ellington RN RN db Potepalov, Sergey, MD MD sp4 Muna Shankar 4 Kathy Urena 2
--- NOTE | 2025-01-24 06:49 | EDPHYS ---
Physician Documentation [facility] Name: Amber Petersen Age: 69 yrs Sex: Female : 1955 Arrival Date: 01/24/2025 Time: 04:42 Bed 7 Private MD: Kane Gudino Atiq ED Physician Bonifacio Rodriguez HPI: 01/24 04:46 This 69 yrs old Female presents to ER via Unassigned with complaints of sp4 Nausea/Vomiting, Weakness, Blood Pressure Problem. 06:54 69-year-old female presents with acute onset of nausea vomiting generalized weakness sp4 and elevated blood pressure. Patient states she has been feeling unwell ever since her hip surgery on 12/19/2024. On 12/18/2024 patient had left heel bony mass resection and excisional biopsy and she still has sutures present there. After that patient fell and fractured her left hip which was fixed at [facility].. Patient now reports she has developed nausea and vomiting. She denied fever.. Historical: - Allergies: 05:22 Codeine; vc1 05:22 Sulfa (Sulfonamide Antibiotics); vc1 05:22 TETRACYCLINES; vc1 - Home Meds: 05:22 amlodipine 5 mg oral tablet [Active]; glipizide 5 mg oral tablet [Active]; metoprolol vc1 succinate 50 mg oral Tablet, Extended Release 24 hr [Active]; ondansetron HCl 8 mg Oral tablet 2 times per day [Active]; [place] 7.5 mg Oral [Active]; gabapentin 300 mg oral capsule 2 times per day [Active]; pantoprazole 40 mg oral tablet, delayed release (enteric coated) [Active]; fenofibrate oral 145 mg [Active]; levothyroxine 25 mcg oral capsule [Active]; Brilinta 90 mg oral tablet 2 times per day [Active]; venlafaxine 150 mg oral Capsule, ER 24 hr [Active]; methocarbamol 500 mg oral tablet 3 times per day [Active]; - PMHx: 05:22 Asthma; depressive disorder; DM; HTN; Myocardial infarction; vc1 - PSHx: 05:22 SHAYNE knee surgeries; cardiac stent; Cholecystectomy; hysterectomy; tubal; left foot vc1 surgery (tubal); left hip surgery (tubal); - Immunization history:: Client reports receiving the 2nd dose of the Covid vaccine, Flu vaccine is not up to date. - Infectious Disease History:: Denies. - Social history:: Smoking status: Patient denies any tobacco usage or history of. - Family history:: not pertinent. ROS: 06:54 Constitutional: Negative for fever, chills, and weight loss, positive nausea or sp4 vomiting. Positive generalized weakness. Positive elevated blood pressure,. Positive postoperative incision left heel with sutures in place. 06:54 All other systems are negative, Exam: 06:54 Constitutional: This is a well developed, well nourished patient who is awake, alert, sp4 and in no acute distress. Head/Face: Normocephalic, atraumatic. Eyes: Pupils equal round and reactive to light, extra-ocular motions intact. Lids and lashes normal. Conjunctiva and sclera are not injected. Cornea within normal limits. Periorbital areas with no swelling, redness, or edema. ENT: Nares patent. No nasal discharge, no septal abnormalities noted. Tympanic membranes are normal and external auditory canals are clear. Oropharynx with no redness, swelling, or masses, exudates, or evidence of obstruction, uvula midline. Mucous membranes moist. Neck: Trachea midline, no thyromegaly or masses palpated, and no cervical lymphadenopathy. Supple, full range of motion without nuchal rigidity, or vertebral point tenderness. Chest/axilla: Normal chest wall appearance and motion. Nontender with no deformity. No lesions are appreciated. Cardiovascular: Regular rate and rhythm with a normal S1 and S2. No gallops, murmurs, or rubs. Normal PMI, no JVD. No pulse deficits. Respiratory: Lungs have equal breath sounds bilaterally, clear to auscultation and percussion. No rales, rhonchi or wheezes noted. No increased work of breathing, no retractions or nasal flaring. Abdomen/GI: Soft, with normal bowel sounds. No distension or tympany. No guarding or rebound. No evidence of tenderness throughout. Back: No spinal tenderness. No costovertebral tenderness. Skin: Warm, dry with normal turgor. Normal color with no rashes, no lesions, and no evidence of cellulitis. MS/ Extremity: Pulses equal, no cyanosis. Neurovascular intact. Full, normal range of motion. Left heel postoperative incision with sutures in place to posterior heel. Wound is clean dry and intact. No signs of postoperative infection Neuro: Awake and alert, GCS 15, oriented to person, place, time, and situation. Cranial nerves II-XII grossly intact. Motor strength 5/5 in all extremities. Sensory grossly intact. Psych: Awake, alert, with orientation to person, place and time. Behavior, mood, and affect are within normal limits 06:57 ECG was reviewed by the Attending Physician. EKG 0 510 normal sinus rhythm rate 72, sp4 normal EKG Vital Signs: 05:19 BP 149 / 91; Pulse 75; Resp 16; Temp 98.5; Pulse Ox 97% ; Weight 83.91 kg; Height 5 ft. vc1 4 in. ; 06:30 BP 127 / 56; Pulse 74; Resp 18; Pulse Ox 97% ; cp4 07:30 BP 127 / 59; Pulse 66; Resp 15; Pulse Ox 98% on R/A; db 05:19 Body Mass Index 31.75 (83.91 kg, 162.56 cm) vc1 Silvia Coma Score: 06:54 Eye Response: spontaneous(4). Motor Response: obeys commands(6). Verbal Response: sp4 oriented(5). Total: 15. MDM: 04:48 Medical Screening Exam initiated sp4 06:45 ED course: EXAM: Foot Left 3 View HISTORY: left foot redness COMPARISON: None FINDINGS: sp4 Bones: No acute fracture identified. Sclerotic focus either in the calcaneus or adjacent to it and of doubtful acute clinical significance. Alignment:No significant malalignment. Degenerative changes:Calcaneal spurring. Midfoot degenerative changes. Other: No radiographic evidence of osteomyelitis. IMPRESSION: No acute osseous abnormality. No radiographic evidence of osteomyelitis. MRI more sensitive in the acute phase. . ED course: EXAM: Chest Single View HISTORY: 69 years Female CHEST PAIN COMPARISON: 03/20/2024 FINDINGS: LUNGS/PLEURA: The lungs are clear. No pleural effusions or pneumothorax. No pulmonary edema. CARDIAC/MEDIASTINUM: The cardiac silhouette is within normal limits. UPPER ABDOMEN: No significant abnormality. BONES: No acute abnormality. LINES/TUBES/OTHER: N/A IMPRESSION: No evidence of acute cardiopulmonary disease. No significant change from prior.. 06:57 Differential diagnosis: Nonspecific abd pain, gastritis, pancreatitis, viral sp4 gastroenteritis, gastroenteritis. Data reviewed: vital signs, nurses notes, old medical records, lab test result(s), electrolytes, hepatic panel, radiologic studies. Consideration of Admission/Observation Escalation of care including admission/observation considered. 06:59 ED course: Based on exam there is no sign of left foot active infection. Postop sp4 incision looks clean dry and intact. Patient advised to continue her cephalexin at home. Will advise clear liquid diet for next 24 hours. We will prescribe Phenergan and tramadol for nausea and pain respectively. 01/24 05:09 Order name: Blood Culture Adult (2) sp4 01/24 04:47 Order name: CBC with Diff; Complete Time: 06:34 sp4 01/24 04:47 Order name: CMP; Complete Time: 06:34 sp4 01/24 04:47 Order name: Lipase; Complete Time: 06:34 sp4 01/24 04:47 Order name: Magnesium; Complete Time: 06:34 sp4 01/24 04:47 Order name: NT PRO-BNP; Complete Time: 06:34 sp4 01/24 04:47 Order name: PT-INR; Complete Time: 06:34 sp4 01/24 04:47 Order name: Troponin HS; Complete Time: 06:34 sp4 01/24 05:11 Order name: Lactate w/ 2H reflex if indic.; Complete Time: 06:34 cp4 01/24 04:47 Order name: XRAY Chest (1 view); Complete Time: 06:34 sp4 01/24 05:09 Order name: Foot Left 3 View XRAY; Complete Time: 06:34 sp4 01/24 05:09 Order name: Extremity Venous Uni Ltd 4 01/24 04:47 Order name: IV Saline Lock; Complete Time: 05:10 sp4 01/24 04:47 Order name: Labs collected and sent; Complete Time: 05:10 sp4 01/24 04:47 Order name: Cardiac monitoring; Complete Time: 05:10 sp4 01/24 04:47 Order name: EKG - Nurse/Tech; Complete Time: 05:10 sp4 01/24 04:47 Order name: O2 Per Protocol; Complete Time: 05:10 sp4 01/24 04:47 Order name: O2 Sat Monitoring; Complete Time: 05:10 sp4 EC:10 Rate is 72 beats/min. Rhythm is regular, Normal Sinus Rhythm. QRS Rogers is Normal. NV sp4 interval is normal. QRS interval is normal. QT interval is normal. No Q waves. T waves are Normal. No ST changes noted. Clinical impression: No evidence of ischemia. Interpreted by me. Reviewed by me. Administered Medications: 05:28 Drug: metoCLOPramide IVP 10 mg IVP once; over 1 to 2 minutes Route: IVP; Site: right cp4 antecubital; 06:55 Follow up: Response: No adverse reaction cp4 05:28 Drug: Rocephin - Rocephin (cefTRIAXone) IVPB 1 grams IVPB once over 30 mins; (mix in 50 cp4 mL NS) Route: IVPB; Infused Over: 30 mins; Site: right antecubital; 06:54 Follow up: Response: No adverse reaction; IV Status: Completed infusion cp4 05:28 Drug: traMADol PO 100 mg PO once Route: PO; cp4 06:54 Follow up: Response: No adverse reaction cp4 05:29 Drug: Ondansetron IVP 4 mg IVP once; over 2 minutes Route: IVP; Site: right antecubital;cp4 06:55 Follow up: Response: No adverse reaction cp4 Disposition Summary: 01/24/25 06:48 Discharge Ordered Notes: Location: Home sp4 Problem: new sp4 Symptoms: have improved sp4 Condition: Stable sp4 Diagnosis - Acute gastroenteritis, acute nausea and vomiting, Elevated blood pressure, sp4 encounter for postoperative wound check left foot and heel Followup: sp4 - With: Private Physician - When: 7 - 10 days - Reason: Recheck today's complaints Discharge Instructions: - Discharge Summary Sheet sp4 - Viral Gastroenteritis, Adult, Ealg-he-Utds sp4 Forms: - Patient Portal Instructions sp4 Prescriptions: - Tramadol 50 mg Oral tablet - take 1 tablet ORAL route every 8 hours as needed; 20 tablet; Refills: 0, sp4 Product Selection Permitted - promethazine 25 mg Oral tablet - take 1 tablet ORAL route every 8 hours As needed PRN nausea; 30 tablet; sp4 Refills: 0, Product Selection Permitted Signatures: Dispatcher [facility] Carmela Cifuentes RN RN vc1 Bonifacio Rodriguez MD MD sp4 Muna Shankar cp4 Corrections: (The following items were deleted from the chart) 04:47 04:47 CBC+H.LAB.BRZ ordered. EDMS EDMS 04:47 04:47 COMPREHENSIVE METABOLIC PANEL+C.LAB.BRZ ordered. EDMS EDMS 04:47 04:47 LIPASE+C.LAB.BRZ ordered. EDMS EDMS 04:47 04:47 Urinalysis+U.LAB.BRZ ordered. EDMS EDMS 04:48 04:48 Chest Single View+RAD.RAD.BRZ ordered. EDMS EDMS 05:09 05:09 BLOOD CULTURE*+BA.LAB.BRZ ordered. EDMS EDMS 05:09 05:09 Foot Left 3 View+RAD.RAD.BRZ ordered. EDMS EDMS
--- NOTE | 2025-01-24 07:17 | RAD REPORT ---
Extremity Venous Uni Ltd CLINICAL INDICATION: Female, 69 years old.left leg swelling TECHNIQUE: Complete duplex sonography of the lower extremity veins was performed of the affected limb . The examination included compression for vein patency, color Doppler imaging and flow augmentation in response to distal compression of the distal external iliac, common femoral, femoral, popliteal, peroneal, tibial and great saphenous veins. [id number]. COMPARISON: No prior exams FINDINGS: Duplex sonography imaging demonstrates all deep veins examined to be fully compressible with spontane ous, phasic and augmented flow in the affected limb. IMPRESSION: No evidence of deep venous thrombosis in the left lower extremity.
[2025-01-24 12:11] VITALS: TEMP 98.5
[2025-01-24 12:16] VITALS: BP 127/59; O2SAT 98
--- NOTE | 2025-01-24 12:33 | EKG ---
Test Date: 2025-01-24 Test Time: 05:10:58 T[employer] Wrapper: AF MEASUREMENT RESULTS: Intervals: Rate: 72 LA: 142 QRSD: 78 QT: 398 QTc: 435 [place]: P: 47 LA: 142 QRS: 25 T: 40 INTERPRETIVE STATEMENTS: Normal sinus rhythm Normal ECG Compared to ECG 03/21/2024 19:48:10 No significant changes Electronically Signed On 01-24-25 12:33:15 CDT by John Francisco
== END 2025-01-24 07:51 | disposition home or self-care (01) ==
LOC: ER 04:42
DX: K52.9 Noninfective gastroenteritis and colitis, unspecified (principal); I10 Essential (primary) hypertension; Z48.01 Encounter for change or removal of surgical wound dressing; R53.1 Weakness; R10.13 Epigastric pain; Z95.818 Presence of other cardiac implants and grafts
CPT/HCPCS: 36415; 71045; 80053; 83605; 83690; 83735; 83880; 84484; 85025; 85610; 87040; 93005; 93971; J0696; J2405; J2765

== ENCOUNTER 2025-02-10 19:19 | Emergency (ER) | payer MEDICARE ==
[2025-02-10 20:59] LABS: Absolute Basophils 0.1 K/uL (0-0.5); Absolute Eosinophils 0.2 K/uL (0-0.5); Absolute Lymphocytes (CBC) 2.3 K/uL (0.7-4.9); Absolute Monocytes 0.8 K/uL (0.1-1.3); Absolute Neutrophil 6.6 K/uL (1.8-8.0); Basophils % 1.1 % (0-1.3); Eosinophils % 1.7 % (0-4.4); Hematocrit 40.7 % (36.0-45.0); Hemoglobin 13.7 g/dL (12.0-15.0); Lymphocytes % 22.7 % (15.3-44.8); MCH 29.3 pg (27.0-35.0); MCHC 33.7 g/dL (32.0-36.0); MCV 86.8 fL (80-100); MPV 8.7 fL (7.6-11.3); Monocytes % 8.2 % (3.3-12.3); Neutrophils % 66.3 % (41.7-73.7); Nucleated Red Blood Cells % 0.1 % (0-0); Platelets 264 thou/uL (152-406); RBC Red Blood Cell Count 4.68 M/uL (3.86-4.86); Red Cell Distribution Width 13.9 % (12.1-15.2)
[2025-02-10] MEDS ORDERED: ONDANSETRON 4 MG/2 ML VIAL ONE (21:11)
[2025-02-10] MEDS ORDERED: MAGNES/ALUMIN/SIMET 30ML UCUP ONE (21:12)
[2025-02-10] MEDS ORDERED: LIDOCAINE VISCOUS 2% 10ML ORAL SOLN ONE (21:12)
[2025-02-10 21:17] LABS: ALT/SGPT 17 U/L (13-56); Albumin 3.1 g/dL (3.4-5.0); Albumin/Globulin Ratio 0.7 (1.1-1.8); Alkaline Phosphatase 104 U/L (45-117); Anion Gap 9.7 mEq/L (5.0-15.0); BUN Blood Urea Nitrogen 7 mg/dL (7-18); Bicarbonate 26 mEq/L (21-32); Bilirubin Total 0.3 mg/dL (0.2-1.0); Globulin 4.2 g/dL (2.3-3.5); Glomerular Filtration Rate 84 ml/min (=/>90); Glucose Level 282 mg/dL (74-106); Potassium 3.7 mEq/L (3.5-5.1); Protein, Total 7.3 g/dL (6.4-8.2); Sodium Level 137 mEq/L (136-145)
[2025-02-10 21:18] LABS: AST/SGOT < 10 U/L (15-37); Bilirubin Direct < 0.2 mg/dL (0-0.2); Bilirubin Indirect, Calculated 0.1 mg/dL (0.2-0.8)
--- NOTE | 2025-02-10 22:25 | ER ---
Nurse's Notes [facility] Name: Amber Petersen Age: 69 yrs Sex: Female : 1955 Arrival Date: 02/10/2025 Time: 19:19 Bed 13 Private MD: Diagnosis: Type 2 diabetes mellitus with hyperglycemia Presentation: 02/10 19:41 Chief complaint: Patient states: Changed her diabetic sensor today at 1300 and her cm10 blood sugars have been unstable. Pt states that her sugar dropped to the 80s and she took some glucose tabs and a 7up. pt states that now her blood sugar is high. Coronavirus screen: Client denies travel out of the [place] in the last 14 days. Ebola Screen: Patient denies travel to an Ebola-affected area in the 21 days before illness onset. Initial Sepsis Screen: Does the patient meet any 2 criteria? No. Patient's initial sepsis screen is negative. Does the patient have a suspected source of infection? No. Patient's initial sepsis screen is negative. Risk Assessment: Do you want to hurt yourself or someone else? Patient reports no desire to harm self or others. Onset of symptoms was February 10, 2025. 19:41 Method Of Arrival: Wheelchair cm10 19:41 Acuity: LIVAN 3 cm10 Triage Assessment: 19:45 General: Appears in no apparent distress. uncomfortable, Behavior is calm, cooperative. cm10 Neuro: No deficits noted. Level of Consciousness is awake, alert, obeys commands, Oriented to person, place, time, situation, Appropriate for age. Respiratory: No deficits noted. Airway is patent Respiratory effort is even, unlabored, Respiratory pattern is regular, symmetrical. Historical: - Allergies: 19:43 Codeine; cm10 19:43 Sulfa (Sulfonamide Antibiotics); cm10 19:43 TETRACYCLINES; cm10 19:43 Hydrocodone; cm10 19:43 Tylenol-Codeine #3; cm10 - PMHx: 19:43 Asthma; depressive disorder; DM; HTN; Myocardial infarction; cm10 - PSHx: 19:43 SHAYNE knee surgeries; cardiac stent; Cholecystectomy; hysterectomy; left foot surgery cm10 (tuba); left hip surgery (tuba); tubal; - Immunization history:: Adult Immunizations up to date. - Infectious Disease History:: Denies. - Social history:: Smoking status: unknown. - Family history:: not pertinent. Screenin:00 [facility] ED Fall Risk Assessment (Adult) History of falling in the last 3 months, rg5 including since admission No falls in past 3 months (0 pts) Confusion or Disorientation No (0 pts) Intoxicated or Sedated No (0 pts) Impaired Gait No (0 pts) Mobility Assist Device Used No (0 pt) Altered Elimination No (0 pt) Score/Fall Risk Level 0 - 2 = Low Risk Oriented to surroundings, Maintained a safe environment. Abuse screen: Denies threats or abuse. Nutritional screening: No deficits noted. Tuberculosis screening: No symptoms or risk factors identified. Assessment: 20:00 General: Appears in no apparent distress. comfortable, Behavior is calm, cooperative, rg5 appropriate for age. 20:00 Pain: Denies pain. Neuro: Level of Consciousness is awake, alert, obeys commands, rg5 Oriented to person, place, time, situation. Cardiovascular: Denies chest pain, Patient's skin is warm and dry. Respiratory: Airway is patent Trachea midline Respiratory effort is even, unlabored. GI: Abdomen is round non-distended. : No signs and/or symptoms were reported regarding the genitourinary system. EENT: No deficits noted. Derm: Skin is intact, Skin is dry, Skin is normal. Musculoskeletal: Circulation, motion, and sensation intact. Range of motion: intact in all extremities. 20:30 Reassessment: No changes from previously documented assessment. Patient and/or family rg5 updated on plan of care and expected duration. Pain level reassessed. GI: Reports nausea, vomiting. 21:00 Reassessment: Patient and/or family updated on plan of care and expected duration. Pain rg5 level reassessed. Patient is alert, oriented x 3, equal unlabored respirations, skin warm/dry/pink. Patient states symptoms have improved. 22:00 Reassessment: Patient and/or family updated on plan of care and expected duration. Pain rg5 level reassessed. Patient is alert, oriented x 3, equal unlabored respirations, skin warm/dry/pink. Patient states feeling better. Vital Signs: 19:41 BP 151 / 70; Pulse 89; Resp 16; Temp 97.1(O); Pulse Ox 97% on R/A; Weight 81.19 kg; cm10 Height 5 ft. 1 in. ; Pain 3/10; 21:00 BP 135 / 116; Pulse 91; Resp 18; Pulse Ox 97% on R/A; rg5 22:00 BP 130 / 60; Pulse 75; Resp 18; Pulse Ox 97% ; Pain 0/10; rg5 19:41 Body Mass Index 33.82 (81.19 kg, 154.94 cm) cm10 19:41 Pain Scale: Adult cm10 22:00 Pain Scale: Adult rg5 ED Course: 19:21 Patient arrived in ED. mr 19:23 Jass Rodríguez MD is Attending Physician. rt 19:43 Triage completed. cm10 19:45 Arm band placed on right wrist. Patient placed in waiting room. cm10 20:00 Patient has correct armband on for positive identification. Door closed. Noise rg5 minimized. Warm blanket given. 20:00 No provider procedures requiring assistance completed. Inserted saline lock: 20 gauge rg5 in right antecubital area, using aseptic technique. Blood collected. Flushed with 10 mL NS. 20:26 Keith Moore, RN is Primary Nurse. rg5 21:09 EKG done, by ED staff. hw 22:35 IV discontinued, bleeding controlled, No redness/swelling at site. Pressure dressing rg5 applied. 22:42 Provided Education on: post er care. rg5 Administered Medications: 21:13 Drug: Ondansetron IVP 4 mg IVP once; over 2 minutes Route: IVP; Site: right forearm; rg5 22:18 Follow up: Response: No adverse reaction rg5 21:13 Drug: GI Cocktail without - (Maalox PO 30 ml, Lidocaine Mucous Membrane 2 % 15 rg5 ml) PO once Route: PO; 22:18 Follow up: Response: No adverse reaction rg5 Medication: 20:00 VIS not applicable for this client. rg5 Point of Care Testing: Blood Glucose: 19:44 Blood Glucose: 302 mg/dL; cm10 Ranges: Outcome: 22:25 Discharge ordered by . rt 22:41 Discharged to home via wheelchair, rg5 22:41 Condition: stable 22:41 Discharge instructions given to patient, family, Instructed on discharge instructions, Demonstrated understanding of instructions, 22:42 Patient left the ED. rg5 Signatures: Judi Syed, Reg Reg mr TurkJass aranda MD MD rt Martinez, Clarissa, RN RN cm10 Keith Moore, RN RN rg5 Inge Corrigan
--- NOTE | 2025-02-10 22:26 | EDPHYS ---
Physician Documentation [facility] Name: Amber Petersen Age: 69 yrs Sex: Female : 1955 Arrival Date: 02/10/2025 Time: 19:19 Bed 13 Private MD: ED Physician Jass Rodríguez HPI: 02/10 19:52 This 69 yrs old Female presents to ER via Wheelchair with complaints of Blood sugar rt problem. 19:52 Patient states that earlier today, she had a blood glucose reading of about 65, took rt glucose tablet, ate a meal. States that her blood sugar rapidly elevated. And started dropping again to about 85 but then had another reading that was in the 200s. She is concerned for these erratic readings. States that she feels shaky and somewhat unwell but denies any other specific symptoms, symptoms are moderate in severity, no other aggravating alleviating factors.. Historical: - Allergies: 19:43 Codeine; cm10 19:43 Sulfa (Sulfonamide Antibiotics); cm10 19:43 TETRACYCLINES; cm10 19:43 Hydrocodone; cm10 19:43 Tylenol-Codeine #3; cm10 - PMHx: 19:43 Asthma; depressive disorder; DM; HTN; Myocardial infarction; cm10 - PSHx: 19:43 SHAYNE knee surgeries; cardiac stent; Cholecystectomy; hysterectomy; left foot surgery cm10 (tuba); left hip surgery (tuba); tubal; - Immunization history:: Adult Immunizations up to date. - Infectious Disease History:: Denies. - Social history:: Smoking status: unknown. - Family history:: not pertinent. ROS: 19:52 Cardiovascular: Negative for chest pain, palpitations, and edema, Respiratory: Negative rt for shortness of breath, cough, wheezing, and pleuritic chest pain, Abdomen/GI: Negative for abdominal pain, nausea, vomiting, diarrhea, and constipation, MS/Extremity: Negative for injury and deformity, Skin: Negative for injury, rash, and discoloration, Neuro: Negative for headache, weakness, numbness, tingling, and seizure, 19:52 Constitutional: Positive for malaise, Negative for fever, Exam: 19:52 Constitutional: This is a well developed, well nourished patient who is awake, alert, rt and in no acute distress. Head/Face: Normocephalic, atraumatic. Chest/axilla: Normal chest wall appearance and motion. Nontender with no deformity. No lesions are appreciated. Cardiovascular: Regular rate and rhythm with a normal S1 and S2. No gallops, murmurs, or rubs. Normal PMI, no JVD. No pulse deficits. Respiratory: Lungs have equal breath sounds bilaterally, clear to auscultation and percussion. No rales, rhonchi or wheezes noted. No increased work of breathing, no retractions or nasal flaring. Abdomen/GI: Soft, non-tender, with normal bowel sounds. No distension or tympany. No guarding or rebound. No evidence of tenderness throughout. Skin: Warm, dry with normal turgor. Normal color with no rashes, no lesions, and no evidence of cellulitis. MS/ Extremity: Pulses equal, no cyanosis. Neurovascular intact. Full, normal range of motion. Neuro: Awake and alert, GCS 15, oriented to person, place, time, and situation. Cranial nerves II-XII grossly intact. Motor strength 5/5 in all extremities. Sensory grossly intact. Cerebellar exam normal. Normal gait. Vital Signs: 19:41 BP 151 / 70; Pulse 89; Resp 16; Temp 97.1(O); Pulse Ox 97% on R/A; Weight 81.19 kg; cm10 Height 5 ft. 1 in. ; Pain 3/10; 21:00 BP 135 / 116; Pulse 91; Resp 18; Pulse Ox 97% on R/A; rg5 22:00 BP 130 / 60; Pulse 75; Resp 18; Pulse Ox 97% ; Pain 0/10; rg5 19:41 Body Mass Index 33.82 (81.19 kg, 154.94 cm) cm10 19:41 Pain Scale: Adult cm10 22:00 Pain Scale: Adult rg5 MDM: 19:43 Medical Screening Exam initiated rt 22:58 Differential Diagnosis Hypoglycemia, hyperglycemia. Data reviewed: vital signs, nurses rt notes, lab test result(s), EKG. Consideration of Admission/Observation Escalation of care including admission/observation considered. Unremarkable labs save for mild hyperglycemia, she has maintained her blood sugar throughout her stay in the emergency department, is feeling better after GI cocktail, no further workup is indicated at this time, patient unclear benefit from admission, she does have an appointment with her phone technician on Wednesday, will continue monitoring via Dexcom.. Care significantly affected by the following chronic conditions: Diabetes. Counseling: I had a detailed discussion with the patient and/or guardian regarding the historical points, exam findings, and any diagnostic results supporting the discharge/admit diagnosis, lab results, the need for outpatient follow up, to return to the emergency department if symptoms worsen or persist or if there are any questions or concerns that arise at home. Response to treatment: the patient's symptoms have markedly improved after treatment. 02/10 19:50 Order name: Basic Metabolic Panel; Complete Time: 21:19 rt 02/10 19:50 Order name: CBC with Diff; Complete Time: 21:10 rt 02/10 19:50 Order name: LFT's; Complete Time: 21: rt 02/10 19:50 Order name: Magnesium; Complete Time: 21: rt 02/10 19:50 Order name: Troponin HS; Complete Time: 21: rt 02/10 19:52 Order name: Glucose, Ancillary Testing; Complete Time: 21:10 EDMS 02/10 19:50 Order name: Cardiac monitoring; Complete Time: 21:09 rt 02/10 19:50 Order name: EKG - Nurse/Tech; Complete Time: 21: rt 02/10 19:50 Order name: IV Saline Lock; Complete Time: 21:44 rt 02/10 19:50 Order name: Labs collected and sent; Complete Time: 21:44 rt 02/10 19:50 Order name: O2 Per Protocol; Complete Time: 21:44 rt 02/10 19:50 Order name: O2 Sat Monitoring; Complete Time: 21:45 rt Administered Medications: 21:13 Drug: Ondansetron IVP 4 mg IVP once; over 2 minutes Route: IVP; Site: right forearm; rg5 22:18 Follow up: Response: No adverse reaction rg5 21:13 Drug: GI Cocktail without - (Maalox PO 30 ml, Lidocaine Mucous Membrane 2 % 15 rg5 ml) PO once Route: PO; 22:18 Follow up: Response: No adverse reaction rg5 Point of Care Testing: Blood Glucose: 19:44 Blood Glucose: 302 mg/dL; cm10 Ranges: Critical Glucose Levels:Adult <50 mg/dl or >400 mg/dl <40 mg/dl or >180 mg/dl Disposition Summary: 02/10/25 22:25 Discharge Ordered Notes: Location: Home rt Problem: chronic rt Symptoms: have improved rt Condition: Stable rt Diagnosis - Type 2 diabetes mellitus with hyperglycemia rt Followup: rt - With: Private Physician - When: 2 - 3 days - Reason: Discharge Instructions: - Discharge Summary Sheet rt - Hyperglycemia rt Forms: - Medication Reconciliation Form rt - Antibiotic Education rt - Prescription Opioid Use rt - Patient Portal Instructions rt - Leadership Thank You Letter rt Signatures: Dispatcher [employer] EDMS Jass Rodríguez MD MD rt Vashti Bryant, RN RN cm10 Keith Moore RN RN rg5 Corrections: (The following items were deleted from the chart) 19:50 19:50 BASIC METABOLIC PANEL+C.LAB.BRZ ordered. EDMS EDMS 19:50 19:50 CBC+H.LAB.BRZ ordered. EDMS EDMS 19:50 19:50 HEPATIC FUNCTION+C.LAB.BRZ ordered. EDMS EDMS 19:50 19:50 MAGNESIUM+C.LAB.BRZ ordered. EDMS EDMS 19:50 19:50 Troponin High Sensitivity+C.LAB.BRZ ordered. EDMS EDMS
[2025-02-10 23:00] VITALS: TEMP 97.1; O2SAT 97
[2025-02-10 23:03] VITALS: BP 130/60
== END 2025-02-10 22:42 | disposition home or self-care (01) ==
LOC: ER 19:19
DX: E11.65 Type 2 diabetes mellitus with hyperglycemia (principal); Z95.818 Presence of other cardiac implants and grafts
CPT/HCPCS: 85025; 80048; 36415; 83735; 82947; 80076; 84484; 96374; 99284; J2405; 93005